=== PATIENT | female | born 1950 | race Caucasian/White ===

== ENCOUNTER 2018-09-27 16:29 | Emergency (ER) | payer MEDICARE ==
[~2018-09-27] VITALS: Ht 154.9 cm; Wt 44.0 kg
[~2018-09-27 16:29] MED LIST: AMIT-189 PO; ATOR40TA PO; CALC0.5C2 PO; CELE-193 PO; EZET10TA13 PO; FURO-150 PO; HYDR-3972 PO; LOSA25TA96 PO; MEXI200C PO; MONT10TA24 PO; PHYT100T PO; TRAV5DRO EACHEYE; [UNRECOGNIZED DRUG - OTHER]
[2018-09-27 17:13] LABS: BASOPHILS # (AUTO) 0.1 X10'3 (0-0.2); BASOPHILS % (AUTO) 0.7 % (0-1); EOSINOPHILS % (AUTO) 7.2 % (0-6); HEMATOCRIT 36.8 % (35.0-45.0); HEMOGLOBIN 12.2 g/dl (12.0-16.0); LYMPHOCYTES # (AUTO) 2.1 X10'3 (1.1-4.8); LYMPHOCYTES % (AUTO) 15.9 % (21-51); MEAN CORPUSCULAR HEMOGLOBIN 33.2 PG (27.0-31.0); MEAN CORPUSCULAR HGB CONC 33.2 g/dL (33.0-36.5); MEAN CORPUSCULAR VOLUME 99.9 FL (78-98); MEAN PLATELET VOLUME 7.6 FL (7.4-10.4); MONOCYTES # (AUTO) 1.2 X10'3 (0-0.9); MONOCYTES % (AUTO) 9.2 % (2-12); NEUTROPHILS # (AUTO) 8.9 X10'3 (1.8-7.7); PLATELET COUNT 384 X10'3 (140-440); RED BLOOD COUNT 3.68 X10'6 (4.20-5.60); RED CELL DISTRIBUTION WIDTH 14.5 % (11.5-14.5); WHITE BLOOD COUNT 13.3 X10'3 (4.5-11.0)
[2018-09-27 17:26] LABS: PARTIAL THROMBOPLASTIN TIME 26 SECONDS (22-32)
[2018-09-27 17:28] LABS: ALANINE AMINOTRANSFERASE 26 U/L (12-78); ALBUMIN 3.2 G/DL (3.4-5.0); ALBUMIN/GLOBULIN RATIO 0.7 (1.1-1.5); ALKALINE PHOSPHATASE 234 IU/L (46-116); ANION GAP 7 (8-16); ASPARTATE AMINO TRANSFERASE 25 U/L (10-37); BILIRUBIN,TOTAL 0.5 MG/DL (0.1-1.0); BLOOD UREA NITROGEN 10 MG/DL (7-18); BUN/CREATININE RATIO 8.3 (6.6-38.0); CHLORIDE 96 MMOL/L (99-107); CREATININE 1.21 MG/DL (0.40-0.90); GLUCOSE 162 MG/DL (70-104); POTASSIUM 3.1 MMOL/L (3.5-5.1); SODIUM 133 MMOL/L (135-145); TOTAL CARBON DIOXIDE 30.2 MMOL/L (24-32); TOTAL PROTEIN 7.9 G/DL (6.4-8.2); eGFR 44 ML/MIN
[2018-09-27] MEDS ORDERED: potassium Cl 20 mEq SR tablet PO STA (18:28)
[2018-09-27] MEDS ORDERED: CefTRIAXone/D5W-Rocephin 1gm 50 ML IV ONE (18:30)
[2018-09-27] MEDS ORDERED: normal saline 1000ML IV soln IVB ONE (18:30)
[2018-09-27 19:35] VITALS: BP 158/31
== END 2018-09-27 19:38 | disposition left against medical advice (07) ==
LOC: ER 16:30
DX: E83.52 Hypercalcemia (principal); R00.0 Tachycardia, unspecified; I48.91 Unspecified atrial fibrillation; D68.0 Von Willebrand disease; J45.909 Unspecified asthma, uncomplicated; Z90.710 Acquired absence of both cervix and uterus; Z98.890 Other specified postprocedural states; Z98.84 Bariatric surgery status; Z88.5 Allergy status to narcotic agent; Z88.8 Allergy status to other drugs, medicaments and biological substances; Z79.899 Other long term (current) drug therapy
CPT/HCPCS: 36415; 71045; 80053; 84484; 85025; 85610; 85730; 93005; 96365; 99284; J0696; J7030

== ENCOUNTER 2024-05-23 18:02 | Inpatient (IN) | payer MEDICARE ==
[~2024-05-23] VITALS: Ht 144.8 cm; Wt 56.7 kg
[~2024-05-23 18:02] MED LIST changes: -AMIT-189 PO; +AMIT50TA15 PO; -EZET10TA13 PO; +EZET10TA7 PO; +LOSA-415 PO; -LOSA25TA96 PO; +MONT-40 PO; -MONT10TA24 PO
[2024-05-23 19:31] LABS: BASOPHILS # (AUTO) 0.1 X10'3 (0-0.2); BASOPHILS % (AUTO) 0.8 % (0-1); EOSINOPHILS # (AUTO) 0.1 X10'3 (0-0.9); EOSINOPHILS % (AUTO) 1.5 % (0-6); LYMPHOCYTES # (AUTO) 1.2 X10'3 (1.1-4.8); LYMPHOCYTES % (AUTO) 15.3 % (21-51); MEAN CORPUSCULAR HEMOGLOBIN 26.1 PG (27.0-31.0); MEAN CORPUSCULAR HGB CONC 32.5 g/dL (33.0-36.5); MEAN CORPUSCULAR VOLUME 80.1 FL (78-98); MEAN PLATELET VOLUME 6.7 FL (7.4-10.4); MONOCYTES # (AUTO) 1.1 X10'3 (0-0.9); MONOCYTES % (AUTO) 13.8 % (2-12); NEUTROPHILS # (AUTO) 5.4 X10'3 (1.8-7.7); NEUTROPHILS % (AUTO) 68.6 % (42-75); PLATELET COUNT 372 X10'3 (140-440); RED BLOOD COUNT 2.63 X10'6 (4.20-5.60); RED CELL DISTRIBUTION WIDTH 19.2 % (11.5-14.5); WHITE BLOOD COUNT 7.9 X10'3 (4.5-11.0)
[2024-05-23] MEDS ORDERED: levetiracetam inj 1,000 MG in normal saline 100ml IV soln 100 ML IV SCH (19:40)
[2024-05-23 19:45] LABS: ALANINE AMINOTRANSFERASE 22 U/L (12-78); ALBUMIN 2.7 G/DL (3.4-5.0); ALBUMIN/GLOBULIN RATIO 0.6 (1.1-1.5); ALKALINE PHOSPHATASE 115 IU/L (46-116); ANION GAP 14 (8-16); ASPARTATE AMINO TRANSFERASE 35 U/L (10-37); BILIRUBIN,TOTAL 0.4 MG/DL (0.1-1.0); BLOOD UREA NITROGEN 79 MG/DL (7-18); BUN/CREATININE RATIO 12.2 (10.0-20.0); CALCIUM 6.6 MG/DL (8.5-10.1); CHLORIDE 96 MMOL/L (99-107); CREATININE 6.49 MG/DL (0.40-0.90); GLUCOSE 101 MG/DL (70-104); HEMATOCRIT 21.1 % (35.0-45.0); HEMOGLOBIN 6.9 g/dl (12.0-16.0); POTASSIUM 5.3 MMOL/L (3.5-5.1); SODIUM 130 MMOL/L (135-145); TOTAL CARBON DIOXIDE 20.3 MMOL/L (24-32); TOTAL PROTEIN 7.4 G/DL (6.4-8.2); eCRCL 4 ML/MIN; eGFR 6 ML/MIN
[2024-05-23 19:54] LABS: PRO BRAIN NATRIURETIC PEPTIDE 5308 PG/ML (0-450)
[2024-05-23] MEDS: levetiracetam-NACL1000mg/100ml 100 ML IV ONE (20:03)
[2024-05-23] MEDS ORDERED: pantoprazole 40mg IV 80 MG in normal saline 100ml IV soln 100 ML IV ONE (20:10)
[2024-05-23 20:23] LABS: APTT 28 SECONDS (22-32); INR 1.1 INR
[2024-05-23 20:27] LABS: ETHANOL < 10 MG/DL (<10); LIPASE 26 U/L (16-77); MAGNESIUM 2.2 MG/DL (1.5-2.4)
[2024-05-23 21:07] LABS: CKMB RELATIVE INDEX 2.6 RATIO (0-2.5); CREATINE KINASE 551 U/L (26-192); CREATINE KINASE MB 14.6 ng/ml (0.3-3.6); PHOSPHORUS 8.2 MG/DL (2.3-4.5)
[2024-05-23] MEDS ORDERED: potassium Cl 20 mEq SR tablet PO PRN ×2 (23:20)
[2024-05-23] MEDS ORDERED: magnesium Cl slow-release 64mg tablet PO PRN (23:20)
[2024-05-23] MEDS ORDERED: ondansetron/PF 4mg/2ml inj IV PRN (23:20)
[2024-05-23] MEDS ORDERED: potassium Cl 40MEQ/1/2NS 520ml 520 ML IV PRN (23:20)
[2024-05-23] MEDS ORDERED: magnesium sulf-water 4G/100mL 100 ML IV PRN (23:20)
[2024-05-23] MEDS ORDERED: dextrose 50%-water 50ml dispensing syringe IV PRN (23:20)
[2024-05-23] MEDS ORDERED: haloperidol lactate 5mg/ml inj IM PRN (23:20)
[2024-05-23] MEDS ORDERED: haloperidol 5mg tablet PO PRN (23:20)
[2024-05-23] MEDS ORDERED: magnesium sulf-water 2g/50mL 50 ML IV PRN (23:20)
[2024-05-23] MEDS ORDERED: acetaminophen 325mg tablet PO PRN (23:20)
[2024-05-23 23:39] LABS: URINE AMPHETAMINE SCREEN NEGATIVE (Neg); URINE BARBITUATE SCREEN NEGATIVE (Neg); URINE BENZODIAZEPINES SCREEN NEGATIVE (Neg); URINE CANNABINOID SCREEN POSITIVE (Neg); URINE COCAINE SCREEN NEGATIVE (Neg); URINE METHADONE SCREEN NEGATIVE (Neg); URINE OPIATE SCREEN POSITIVE (Neg); URINE PHENCYCLIDINE SCREEN NEGATIVE (Neg)
[2024-05-23] MEDS: pantoprazole 40 MG vial IV ONE (23:39)
[2024-05-23 23:40] LABS: BILIRUBIN,URINE NEGATIVE (Neg); CLARITY,URINE CLEAR (Clear); COLOR,URINE YELLOW (Yellow); GLUCOSE, URINE NEGATIVE (Neg); KETONES,URINE NEGATIVE (Neg); LEUKOCYTE ESTERASE ,URINE TRACE (Neg); NITRITES, URINE NEGATIVE (Neg); OCCULT BLOOD,URINE MODERATE (Neg); PROTEIN,URINE 30 mg/dl (Neg); UROBILINOGEN,URINE 0.2 E.U/dL (0.2-1.0)
[2024-05-23] MEDS: LORazepam 2 mg/ml vial IV PRN (23:40)
[2024-05-23 23:41] LABS: UA COLLECTION TYPE FOLEY CATH
[2024-05-23 23:46] LABS: BACTERIA,URINE FEW /HPF (Neg); SQUAMOUS EPITHELIAL CELL,UR FEW /LPF (FEW); WBC,URINE 0-4 /HPF (0-4)
[2024-05-23] MEDS: normal saline 1000ml 1,000 ML IV ONE (23:51)
[2024-05-24] VITALS (12 sets, daily range): BP systolic 111–135; BP diastolic 48–100; PULSE 87–95; RESP 14–20; TEMP 97.7–98.8; O2SAT 92–98
[2024-05-24 00:04] LABS: OSMOLALITY 305.5 MOSM/K (280-300)
[2024-05-24 00:10] LABS: ALBUMIN 2.9 G/DL (3.4-5.0); ANION GAP 16 (8-16); BLOOD UREA NITROGEN 77 MG/DL (7-18); BUN/CREATININE RATIO 11.1 (10.0-20.0); CALCIUM 6.5 MG/DL (8.5-10.1); CHLORIDE 94 MMOL/L (99-107); CREATININE 6.96 MG/DL (0.40-0.90); GLUCOSE 91 MG/DL (70-104); POTASSIUM 4.9 MMOL/L (3.5-5.1); SODIUM 129 MMOL/L (135-145); TOTAL CARBON DIOXIDE 19.3 MMOL/L (24-32); eCRCL 4 ML/MIN; eGFR 6 ML/MIN
[2024-05-24] MEDS: normal saline 1000ml 1,000 ML IV SCH (02:12)
[2024-05-24 07:16] LABS: PROTHROMBIN TIME 10.9 SECONDS (9.0-12.0)
[2024-05-24 07:23] LABS: BASOPHILS # (AUTO) 0.1 X10'3 (0-0.2); BASOPHILS % (AUTO) 0.5 % (0-1); EOSINOPHILS # (AUTO) 0.1 X10'3 (0-0.9); EOSINOPHILS % (AUTO) 0.7 % (0-6); HEMATOCRIT 30.1 % (35.0-45.0); HEMOGLOBIN 9.5 g/dl (12.0-16.0); LYMPHOCYTES # (AUTO) 0.7 X10'3 (1.1-4.8); LYMPHOCYTES % (AUTO) 5.5 % (21-51); MEAN CORPUSCULAR HEMOGLOBIN 26.7 PG (27.0-31.0); MEAN CORPUSCULAR HGB CONC 31.7 g/dL (33.0-36.5); MEAN CORPUSCULAR VOLUME 84.4 FL (78-98); MEAN PLATELET VOLUME 7.1 FL (7.4-10.4); MONOCYTES # (AUTO) 1.3 X10'3 (0-0.9); NEUTROPHILS # (AUTO) 10.1 X10'3 (1.8-7.7); NEUTROPHILS % (AUTO) 82.3 % (42-75); PLATELET COUNT 381 X10'3 (140-440); RED BLOOD COUNT 3.56 X10'6 (4.20-5.60); RED CELL DISTRIBUTION WIDTH 19.1 % (11.5-14.5); WHITE BLOOD COUNT 12.2 X10'3 (4.5-11.0)
[2024-05-24] MEDS: Levetiracetam-NACL 500mg/100ml 100 ML IV SCH (07:29)
[2024-05-24] MEDS: pantoprazole 40 MG vial IV SCH (07:30)
[2024-05-24] MEDS: thiamine 100mg/ml 2ml inj. IV SCH (07:31)
[2024-05-24 07:53] LABS: ALANINE AMINOTRANSFERASE 23 U/L (12-78); ALBUMIN 2.8 G/DL (3.4-5.0); ALBUMIN/GLOBULIN RATIO 0.5 (1.1-1.5); ALKALINE PHOSPHATASE 124 IU/L (46-116); ANION GAP 17 (8-16); ASPARTATE AMINO TRANSFERASE 55 U/L (10-37); BILIRUBIN,TOTAL 0.6 MG/DL (0.1-1.0); BLOOD UREA NITROGEN 75 MG/DL (7-18); BUN/CREATININE RATIO 11.2 (10.0-20.0); CALCIUM 6.2 MG/DL (8.5-10.1); CHLORIDE 97 MMOL/L (99-107); CREATININE 6.71 MG/DL (0.40-0.90); GLUCOSE 94 MG/DL (70-104); MAGNESIUM 2.6 MG/DL (1.5-2.4); PHOSPHORUS 8.4 MG/DL (2.3-4.5); POTASSIUM 5.2 MMOL/L (3.5-5.1); SODIUM 131 MMOL/L (135-145); TOTAL CARBON DIOXIDE 16.9 MMOL/L (24-32); TOTAL PROTEIN 8.1 G/DL (6.4-8.2); eCRCL 4 ML/MIN; eGFR 6 ML/MIN
[2024-05-24] MEDS: heparin, porcine 5000 units/ml vial SQ SCH (08:00)
[2024-05-24] MEDS: K and/or MAG REPLACEMENT MC SCH (08:00)
[2024-05-24] MEDS: docusate sod 100mg capsule PO SCH (08:00)
[2024-05-24] MEDS: CefTRIAXone/D5W-Rocephin 1gm 50 ML IV ONE (09:49)
[2024-05-24 10:17] LABS: ALBUMIN 2.7 G/DL (3.4-5.0); ANION GAP 17 (8-16); BLOOD UREA NITROGEN 79 MG/DL (7-18); BUN/CREATININE RATIO 12.1 (10.0-20.0); CALCIUM 6.1 MG/DL (8.5-10.1); CHLORIDE 100 MMOL/L (99-107); CREATININE 6.53 MG/DL (0.40-0.90); GLUCOSE 79 MG/DL (70-104); POTASSIUM 5.4 MMOL/L (3.5-5.1); SODIUM 134 MMOL/L (135-145); TOTAL CARBON DIOXIDE 17.4 MMOL/L (24-32); eCRCL 4 ML/MIN; eGFR 6 ML/MIN
[2024-05-24 11:45] LABS: HEMATOCRIT 30.9 % (35.0-45.0); HEMOGLOBIN 9.7 g/dl (12.0-16.0); MEAN CORPUSCULAR HEMOGLOBIN 26.6 PG (27.0-31.0); MEAN CORPUSCULAR HGB CONC 31.3 g/dL (33.0-36.5); MEAN PLATELET VOLUME 7.3 FL (7.4-10.4); PLATELET COUNT 363 X10'3 (140-440); RED BLOOD COUNT 3.64 X10'6 (4.20-5.60); RED CELL DISTRIBUTION WIDTH 18.7 % (11.5-14.5); WHITE BLOOD COUNT 12.7 X10'3 (4.5-11.0)
[2024-05-24] MEDS: folic acid 1mg/0.2ml inj IV SCH (11:45)
[2024-05-24 15:19] LABS: HEMATOCRIT 30.8 % (35.0-45.0); HEMOGLOBIN 9.8 g/dl (12.0-16.0); MEAN CORPUSCULAR HEMOGLOBIN 26.8 PG (27.0-31.0); MEAN CORPUSCULAR HGB CONC 31.8 g/dL (33.0-36.5); MEAN CORPUSCULAR VOLUME 84.3 FL (78-98); MEAN PLATELET VOLUME 7.1 FL (7.4-10.4); PLATELET COUNT 354 X10'3 (140-440); RED BLOOD COUNT 3.65 X10'6 (4.20-5.60); RED CELL DISTRIBUTION WIDTH 18.8 % (11.5-14.5); WHITE BLOOD COUNT 13.7 X10'3 (4.5-11.0)
[2024-05-24 15:28] LABS: TOTAL PROTEIN,URINE RANDOM 442.1 MG/DL
[2024-05-24 15:31] LABS: ALBUMIN 2.7 G/DL (3.4-5.0); ANION GAP 17 (8-16); BLOOD UREA NITROGEN 80 MG/DL (7-18); BUN/CREATININE RATIO 11.9 (10.0-20.0); CALCIUM 6.1 MG/DL (8.5-10.1); CHLORIDE 99 MMOL/L (99-107); CREATININE 6.73 MG/DL (0.40-0.90); GLUCOSE 70 MG/DL (70-104); POTASSIUM 5.5 MMOL/L (3.5-5.1); SODIUM 134 MMOL/L (135-145); TOTAL CARBON DIOXIDE 17.7 MMOL/L (24-32); eCRCL 4 ML/MIN; eGFR 6 ML/MIN
[2024-05-24 21:46] LABS: ALBUMIN 2.5 G/DL (3.4-5.0); ANION GAP 19 (8-16); BLOOD UREA NITROGEN 81 MG/DL (7-18); BUN/CREATININE RATIO 11.8 (10.0-20.0); CHLORIDE 101 MMOL/L (99-107); CREATININE 6.86 MG/DL (0.40-0.90); GLUCOSE 64 MG/DL (70-104); POTASSIUM 5.5 MMOL/L (3.5-5.1); SODIUM 134 MMOL/L (135-145); eCRCL 4 ML/MIN; eGFR 6 ML/MIN
[2024-05-24 22:12] LABS: TOTAL CARBON DIOXIDE 14.5 MMOL/L (24-32)
[2024-05-24 22:13] LABS: CALCIUM 5.6 MG/DL (8.5-10.1)
[2024-05-24] MEDS: CALCIUM GLUC 1gm/50ml NACL,iso 50 ML IV ONE (22:39)
[2024-05-24 23:09] LABS: MAGNESIUM 2.2 MG/DL (1.5-2.4); PHOSPHORUS 8.9 MG/DL (2.3-4.5)
[2024-05-25] VITALS (17 sets, daily range): BP systolic 107–160; BP diastolic 48–77; PULSE 91–103; RESP 15–26; TEMP 96.8–98.8; O2SAT 90–98
[2024-05-25] MEDS ORDERED: DEXTROSE 15 GM of carb/4 tabs (each vial/BOTTLE has 4 tablets) PO PRN ×2
[2024-05-25] MEDS ORDERED: glucagon, human recombinant 1mg kit SUBCUT PRN
[2024-05-25] MEDS ORDERED: dextrose 50%-water 50ml dispensing syringe IV PRN
[2024-05-25] MEDS: dextrose 50%-water 50ml dispensing syringe IV PRN (00:28)
[2024-05-25 06:54] LABS: BASOPHILS # (AUTO) 0.1 X10'3 (0-0.2); BASOPHILS % (AUTO) 0.7 % (0-1); EOSINOPHILS # (AUTO) 0.1 X10'3 (0-0.9); EOSINOPHILS % (AUTO) 0.8 % (0-6); HEMATOCRIT 31.1 % (35.0-45.0); HEMOGLOBIN 9.6 g/dl (12.0-16.0); LYMPHOCYTES # (AUTO) 0.7 X10'3 (1.1-4.8); LYMPHOCYTES % (AUTO) 5.4 % (21-51); MEAN CORPUSCULAR HEMOGLOBIN 26.3 PG (27.0-31.0); MEAN CORPUSCULAR VOLUME 84.8 FL (78-98); MEAN PLATELET VOLUME 7.3 FL (7.4-10.4); MONOCYTES # (AUTO) 1.3 X10'3 (0-0.9); MONOCYTES % (AUTO) 9.7 % (2-12); NEUTROPHILS # (AUTO) 11.2 X10'3 (1.8-7.7); NEUTROPHILS % (AUTO) 83.4 % (42-75); PLATELET COUNT 354 X10'3 (140-440); RED BLOOD COUNT 3.66 X10'6 (4.20-5.60); RED CELL DISTRIBUTION WIDTH 19.1 % (11.5-14.5); WHITE BLOOD COUNT 13.4 X10'3 (4.5-11.0)
[2024-05-25 07:01] LABS: INR 1.1 INR; PROTHROMBIN TIME 11.3 SECONDS (9.0-12.0)
[2024-05-25 07:17] LABS: ALANINE AMINOTRANSFERASE 23 U/L (12-78); ALBUMIN 2.5 G/DL (3.4-5.0); ALBUMIN/GLOBULIN RATIO 0.5 (1.1-1.5); ALKALINE PHOSPHATASE 134 IU/L (46-116); ANION GAP 20 (8-16); ASPARTATE AMINO TRANSFERASE 60 U/L (10-37); BILIRUBIN,TOTAL 0.4 MG/DL (0.1-1.0); BLOOD UREA NITROGEN 85 MG/DL (7-18); CALCIUM 6.1 MG/DL (8.5-10.1); CHLORIDE 103 MMOL/L (99-107); CREATININE 7.11 MG/DL (0.40-0.90); GLUCOSE 81 MG/DL (70-104); MAGNESIUM 2.3 MG/DL (1.5-2.4); PHOSPHORUS 8.4 MG/DL (2.3-4.5); POTASSIUM 5.3 MMOL/L (3.5-5.1); SODIUM 136 MMOL/L (135-145); TOTAL PROTEIN 7.6 G/DL (6.4-8.2); eCRCL 4 ML/MIN; eGFR 6 ML/MIN
[2024-05-25 07:30] LABS: TOTAL CARBON DIOXIDE 12.8 MMOL/L (24-32)
[2024-05-25] MEDS ORDERED: dextrose 50%-water 50ml dispensing syringe IV ONE (08:00)
[2024-05-25] MEDS: sodium bicarbonate 1meq/ml inj 150 ML in dextrose 5%-water 1,000 ML IV SCH (10:20)
[2024-05-25] MEDS: CefTRIAXone/D5W-Rocephin 1gm 50 ML IV SCH (10:20)
[2024-05-25 15:22] LABS: ABG BASE EXCESS -15.3 mmol/L (-2.0-3.0); ABG HCO3 12.2 mmol/L (21.0-28.0); ABG OXYGEN SATURATION 93.2 % (94.0-98.0); ABG PCO2 (T) 34.9 mmHg (32.0-45.0); ABG PH (T) 7.163 (7.350-7.450); ALLEN'S TEST POSITIVE; FCOHb 0.5 % (0.5-1.5); FHHb 6.8 % (0.0-5.0); FLOW 6 L/min; FO2Hb 92.7 % (94.0-98.0); MODE MASK - SIMPLE; TOTAL HEMOGLOBIN 10.9 G/dl (12.0-16.0)
[2024-05-25] MEDS ORDERED: HYDR2TAB7 PO (15:37)
[2024-05-25] MEDS ORDERED: FLUO20CA39 PO (15:37)
[2024-05-25] MEDS ORDERED: OMEP40CA21 PO (15:37)
[2024-05-25] MEDS ORDERED: PREG25CA19 PO (15:37)
[2024-05-25] MEDS ORDERED: CHOL20002 PO (15:37)
[2024-05-25] MEDS ORDERED: MORP-92 PO (15:37)
[2024-05-25] MEDS ORDERED: MAGN200T5 PO (15:37)
[2024-05-25] MEDS ORDERED: normal saline 1000ml 100 ML IV PRN (18:50)
[2024-05-25] MEDS: LIDOcaine 1% 30ml preserv. free vial IJ STA (19:29)
[2024-05-25] MEDS: EPOETIN ALFA-EPBX 20,000 UNIT/ML 1 ML MDV IV ONE (21:21)
[2024-05-25 21:57] LABS: ALBUMIN 2.1 G/DL (3.4-5.0); ANION GAP 13 (8-16); BLOOD UREA NITROGEN 76 MG/DL (7-18); CALCIUM 6.1 MG/DL (8.5-10.1); CHLORIDE 102 MMOL/L (99-107); CREATININE 6.32 MG/DL (0.40-0.90); GLUCOSE 165 MG/DL (70-104); POTASSIUM 4.3 MMOL/L (3.5-5.1); SODIUM 137 MMOL/L (135-145); TOTAL CARBON DIOXIDE 21.6 MMOL/L (24-32); eCRCL 5 ML/MIN; eGFR 6 ML/MIN
[2024-05-25] MEDS: heparin 1,000 units/ml 10ml inj HE ONE ×2 (23:00→23:01)
[2024-05-25] MEDS: mannitol 12.5gm/50mL VIAL IV ONE (23:01)
[2024-05-25] MEDS ORDERED: LORazepam 1 MG tablet PO PRN (23:20)
[2024-05-25] MEDS ORDERED: LORazepam 2 mg/ml vial IV PRN (23:20)
[2024-05-26] VITALS (20 sets, daily range): BP systolic 92–178; BP diastolic 50–84; PULSE 82–112; RESP 15–22; TEMP 97–99.5; O2SAT 88–99
[2024-05-26] MEDS: CEFEPIME 2gm in D5W 50mL 50 ML IV SCH (01:10)
[2024-05-26 01:47] LABS: ABG BASE EXCESS -2.4 mmol/L (-2.0-3.0); ABG HCO3 20.2 mmol/L (21.0-28.0); ABG PCO2 (T) 27.2 mmHg (32.0-45.0); ABG PH (T) 7.486 (7.350-7.450); ABG PO2 (T) 59.1 mmHg (83.0-108.0); ALLEN'S TEST POSITIVE; FCOHb 0.2 % (0.5-1.5); FLOW 7 L/min; FMetHb 0.3 % (0.0-1.5); FO2Hb 91.5 % (94.0-98.0); MODE MASK - SIMPLE; PATIENT TEMPERATURE 36.4
[2024-05-26] MEDS: vancomycin/NS 1 GM ADD-VANTAGE 250 ML X 1 DOSE IV ONE (01:49)
[2024-05-26] MEDS: metoprolol tartrate 1mg/ml inj IV ONE (02:00)
[2024-05-26 05:15] LABS: BASOPHILS % (AUTO) 0.1 % (0-1); EOSINOPHILS % (AUTO) 0.2 % (0-6); HEMATOCRIT 31.2 % (35.0-45.0); HEMOGLOBIN 10.2 g/dl (12.0-16.0); LYMPHOCYTES # (AUTO) 0.3 X10'3 (1.1-4.8); LYMPHOCYTES % (AUTO) 1.9 % (21-51); MEAN CORPUSCULAR HGB CONC 32.7 g/dL (33.0-36.5); MEAN CORPUSCULAR VOLUME 82.5 FL (78-98); MEAN PLATELET VOLUME 7.3 FL (7.4-10.4); MONOCYTES # (AUTO) 0.9 X10'3 (0-0.9); MONOCYTES % (AUTO) 6.3 % (2-12); NEUTROPHILS # (AUTO) 12.7 X10'3 (1.8-7.7); NEUTROPHILS % (AUTO) 91.5 % (42-75); PLATELET COUNT 280 X10'3 (140-440); RED BLOOD COUNT 3.78 X10'6 (4.20-5.60); RED CELL DISTRIBUTION WIDTH 19.4 % (11.5-14.5); WHITE BLOOD COUNT 13.9 X10'3 (4.5-11.0)
[2024-05-26 05:24] LABS: INR 1.1 INR; PROTHROMBIN TIME 11.4 SECONDS (9.0-12.0)
[2024-05-26 05:38] LABS: ALANINE AMINOTRANSFERASE 23 U/L (12-78); ALBUMIN 2.2 G/DL (3.4-5.0); ALBUMIN/GLOBULIN RATIO 0.4 (1.1-1.5); ALKALINE PHOSPHATASE 114 IU/L (46-116); ANION GAP 9 (8-16); ASPARTATE AMINO TRANSFERASE 47 U/L (10-37); BILIRUBIN,TOTAL 0.6 MG/DL (0.1-1.0); BLOOD UREA NITROGEN 35 MG/DL (7-18); BUN/CREATININE RATIO 9.7 (10.0-20.0); CHLORIDE 104 MMOL/L (99-107); CREATININE 3.62 MG/DL (0.40-0.90); GLUCOSE 124 MG/DL (70-104); MAGNESIUM 1.8 MG/DL (1.5-2.4); PHOSPHORUS 3.5 MG/DL (2.3-4.5); POTASSIUM 3.3 MMOL/L (3.5-5.1); SODIUM 138 MMOL/L (135-145); TOTAL CARBON DIOXIDE 24.8 MMOL/L (24-32); TOTAL PROTEIN 7.4 G/DL (6.4-8.2); eCRCL 8 ML/MIN; eGFR 12 ML/MIN
[2024-05-26] MEDS ORDERED: vancomycin/NS 1 GM ADD-VANTAGE 250 ML X 1 DOSE IV PRN (07:35)
[2024-05-26] MEDS ORDERED: rocuronium 10mg/ml inj IV ONE (08:00)
[2024-05-26] MEDS ORDERED: sodium phosphate inj. 15 MMOL in dextrose 5%-water 250 ML IV PRN (10:40)
[2024-05-26] MEDS ORDERED: sodium phosphate inj. 30 MMOL in dextrose 5%-water 250 ML IV PRN (10:40)
[2024-05-26] MEDS ORDERED: Neutra Phos packet PO PRN (10:40)
[2024-05-26] MEDS: VANCOMYCIN LEVEL IV ONE (12:00)
[2024-05-26] MEDS: LORazepam 2 mg/ml vial ONE (12:51)
[2024-05-26 12:59] LABS: ABG BASE EXCESS -5.4 mmol/L (-2.0-3.0); ABG HCO3 17.6 mmol/L (21.0-28.0); ABG OXYGEN SATURATION 97.8 % (94.0-98.0); ABG PH (T) 7.431 (7.350-7.450); ABG PO2 (T) 96.3 mmHg (83.0-108.0); ALLEN'S TEST POSITIVE; FCOHb 0.9 % (0.5-1.5); FHHb 2.2 % (0.0-5.0); FLOW 15 L/min; FMetHb 0.3 % (0.0-1.5); FO2Hb 96.6 % (94.0-98.0); MODE MASK - NRB; TOTAL HEMOGLOBIN 11.5 G/dl (12.0-16.0)
[2024-05-26] MEDS: LORazepam 2 mg/ml vial IV ONE (13:02)
[2024-05-26] MEDS ORDERED: UNABLE TO OBTAIN (16:41)
[2024-05-26 16:43] LABS: ABG BASE EXCESS -9.1 mmol/L (-2.0-3.0); ABG HCO3 16.3 mmol/L (21.0-28.0); ABG PCO2 (T) 32.5 mmHg (32.0-45.0); ABG PH (T) 7.314 (7.350-7.450); ABG PO2 (T) 137.5 mmHg (83.0-108.0); FCOHb 0.7 % (0.5-1.5); FO2Hb 98.3 % (94.0-98.0); MODE VENT - AC; PATIENT TEMPERATURE 36.3; PEEP 8 cm H2O; RESPIRATORY RATE 16 b/min; TIDAL VOLUME 400 mL; TOTAL HEMOGLOBIN 11.9 G/dl (12.0-16.0)
[2024-05-26] MEDS: FENTANYL-0.9 % NACL/PF 100 ML ONE (18:30)
[2024-05-26] MEDS: propofol 1000mg/100ml bottle 100 ML IV ONE (19:00)
[2024-05-26] MEDS: NORepinephrine 8mg/ 250ml NS 250 ML IV ONE (19:10)
[2024-05-26] MEDS: NORepinephrine 8mg/ 250ml NS 250 ML IV SCH (20:19)
[2024-05-27] VITALS (32 sets, daily range): BP systolic 88–136; BP diastolic 46–61; PULSE 83–96; RESP 10–23; O2SAT 94–100
[2024-05-27] MEDS: FENTANYL-0.9 % NACL/PF 100 ML IV SCH (01:40)
[2024-05-27] MEDS: propofol 1000mg/100ml bottle 100 ML IV SCH (02:11)
[2024-05-27] MEDS ORDERED: VANCOMYCIN LEVEL IV SCH (03:00)
[2024-05-27 03:20] LABS: BASOPHILS # (AUTO) 0.1 X10'3 (0-0.2); BASOPHILS % (AUTO) 0.4 % (0-1); EOSINOPHILS # (AUTO) 0.2 X10'3 (0-0.9); HEMATOCRIT 32.7 % (35.0-45.0); HEMOGLOBIN 10.4 g/dl (12.0-16.0); LYMPHOCYTES # (AUTO) 0.8 X10'3 (1.1-4.8); LYMPHOCYTES % (AUTO) 4.9 % (21-51); MEAN CORPUSCULAR HEMOGLOBIN 26.5 PG (27.0-31.0); MEAN CORPUSCULAR HGB CONC 31.7 g/dL (33.0-36.5); MEAN CORPUSCULAR VOLUME 83.4 FL (78-98); MEAN PLATELET VOLUME 7.6 FL (7.4-10.4); MONOCYTES # (AUTO) 1.3 X10'3 (0-0.9); MONOCYTES % (AUTO) 7.5 % (2-12); NEUTROPHILS % (AUTO) 86.2 % (42-75); PLATELET COUNT 273 X10'3 (140-440); RED BLOOD COUNT 3.92 X10'6 (4.20-5.60); RED CELL DISTRIBUTION WIDTH 19.5 % (11.5-14.5); WHITE BLOOD COUNT 17.4 X10'3 (4.5-11.0)
[2024-05-27 03:32] LABS: INR 1.1 INR; PROTHROMBIN TIME 11.7 SECONDS (9.0-12.0)
[2024-05-27 03:50] LABS: ALANINE AMINOTRANSFERASE 26 U/L (12-78); ALBUMIN 1.9 G/DL (3.4-5.0); ALBUMIN/GLOBULIN RATIO 0.4 (1.1-1.5); ALKALINE PHOSPHATASE 151 IU/L (46-116); ANION GAP 14 (8-16); ASPARTATE AMINO TRANSFERASE 45 U/L (10-37); BILIRUBIN,TOTAL 0.5 MG/DL (0.1-1.0); BLOOD UREA NITROGEN 41 MG/DL (7-18); CALCIUM 6.7 MG/DL (8.5-10.1); CHLORIDE 106 MMOL/L (99-107); CREATININE 3.43 MG/DL (0.40-0.90); GLUCOSE 136 MG/DL (70-104); MAGNESIUM 1.6 MG/DL (1.5-2.4); PHOSPHORUS 3.9 MG/DL (2.3-4.5); SODIUM 141 MMOL/L (135-145); TOTAL CARBON DIOXIDE 21.3 MMOL/L (24-32); eCRCL 9 ML/MIN; eGFR 13 ML/MIN
[2024-05-27 04:21] LABS: ABG BASE EXCESS -5.4 mmol/L (-2.0-3.0); ABG HCO3 17.8 mmol/L (21.0-28.0); ABG OXYGEN SATURATION 99.5 % (94.0-98.0); ABG PCO2 (T) 26.8 mmHg (32.0-45.0); ABG PH (T) 7.437 (7.350-7.450); ABG PO2 (T) 147.3 mmHg (83.0-108.0); FCOHb 0.5 % (0.5-1.5); FHHb 0.5 % (0.0-5.0); FMetHb 0.3 % (0.0-1.5); FO2Hb 98.7 % (94.0-98.0); MODE PRVC; PATIENT TEMPERATURE 36.3; PEEP 8 cm H2O; RESPIRATORY RATE 16 b/min; TIDAL VOLUME 400 mL; TOTAL HEMOGLOBIN 10.8 G/dl (12.0-16.0)
[2024-05-27] MEDS ORDERED: mannitol 12.5gm/50mL VIAL IV PRN (08:00)
[2024-05-27] MEDS ORDERED: normal saline 1000ml 250 ML IV PRN (08:00)
[2024-05-27] MEDS: cefepime 1GM in D5W 50mL 50 ML IV SCH (08:07)
[2024-05-27 12:50] LABS: CLARITY,URINE CLOUDY (Clear); COLOR,URINE RED (Yellow)
[2024-05-27 13:04] LABS: TOTAL PROTEIN,URINE RANDOM 38.2 MG/DL
[2024-05-27 13:05] LABS: UA COLLECTION TYPE FOLEY CATH
[2024-05-27 13:07] LABS: BACTERIA,URINE FEW /HPF (Neg); MUCUS STRANDS NONE SEEN /LPF (Neg); RBC,URINE TNTC /HPF (0-2); SQUAMOUS EPITHELIAL CELL,UR NONE SEEN /LPF (FEW); WBC CLUMPS,URINE FEW /HPF (NEGATIVE); YEAST FEW /HPF (NEGATIVE)
[2024-05-27] MEDS: potassium Cl 20mEq/100mL bag 100 ML IV PRN (13:16)
[2024-05-27] MEDS: furosemide 20 MG/2 ML vial IV SCH (16:14)
[2024-05-27] MEDS: magnesium sulf-water 4G/100mL 100 ML IV PRN (17:48)
[2024-05-27] MEDS: heparin 1,000unit/ml 10ml vial 10 ML IV ONE (19:00)
[2024-05-27] MEDS: heparin 1,000 units/ml 10ml inj HE ONE (19:00)
[2024-05-27] MEDS: heparin 1,000 units/ml 10ml inj IV ONE (19:00)
[2024-05-27] MEDS ORDERED: LORazepam 2 mg/ml vial IV PRN (23:20)
[2024-05-27] MEDS ORDERED: LORazepam 1 MG tablet PO PRN (23:20)
[2024-05-28] VITALS (37 sets, daily range): BP systolic 88–128; BP diastolic 46–71; PULSE 81–97; RESP 14–22; O2SAT 77–98
[2024-05-28 02:30] LABS: BASOPHILS # (AUTO) 0.1 X10'3 (0-0.2); BASOPHILS % (AUTO) 0.6 % (0-1); EOSINOPHILS # (AUTO) 0.4 X10'3 (0-0.9); EOSINOPHILS % (AUTO) 1.6 % (0-6); HEMATOCRIT 32.7 % (35.0-45.0); HEMOGLOBIN 10.5 g/dl (12.0-16.0); LYMPHOCYTES # (AUTO) 0.9 X10'3 (1.1-4.8); MEAN CORPUSCULAR HEMOGLOBIN 26.8 PG (27.0-31.0); MEAN CORPUSCULAR HGB CONC 32.2 g/dL (33.0-36.5); MEAN CORPUSCULAR VOLUME 83.3 FL (78-98); MEAN PLATELET VOLUME 7.9 FL (7.4-10.4); MONOCYTES # (AUTO) 1.9 X10'3 (0-0.9); MONOCYTES % (AUTO) 7.9 % (2-12); NEUTROPHILS # (AUTO) 20.7 X10'3 (1.8-7.7); NEUTROPHILS % (AUTO) 85.9 % (42-75); PLATELET COUNT 317 X10'3 (140-440); RED BLOOD COUNT 3.93 X10'6 (4.20-5.60); RED CELL DISTRIBUTION WIDTH 20.2 % (11.5-14.5)
[2024-05-28 02:38] LABS: INR 1.1 INR; PROTHROMBIN TIME 11.4 SECONDS (9.0-12.0)
[2024-05-28 02:46] LABS: ALANINE AMINOTRANSFERASE 16 U/L (12-78); ALBUMIN 1.7 G/DL (3.4-5.0); ALBUMIN/GLOBULIN RATIO 0.3 (1.1-1.5); ALKALINE PHOSPHATASE 136 IU/L (46-116); ANION GAP 16 (8-16); ASPARTATE AMINO TRANSFERASE 30 U/L (10-37); BILIRUBIN,TOTAL 0.5 MG/DL (0.1-1.0); BLOOD UREA NITROGEN 36 MG/DL (7-18); BUN/CREATININE RATIO 12.5 (10.0-20.0); CALCIUM 6.9 MG/DL (8.5-10.1); CHLORIDE 104 MMOL/L (99-107); CREATININE 2.89 MG/DL (0.40-0.90); GLUCOSE 119 MG/DL (70-104); MAGNESIUM 2.6 MG/DL (1.5-2.4); SODIUM 141 MMOL/L (135-145); TOTAL CARBON DIOXIDE 20.7 MMOL/L (24-32); TOTAL PROTEIN 7.2 G/DL (6.4-8.2); eCRCL 10 ML/MIN; eGFR 16 ML/MIN
[2024-05-28 02:49] LABS: POTASSIUM 2.7 MMOL/L (3.5-5.1)
[2024-05-28 03:10] LABS: ABG HCO3 20.2 mmol/L (21.0-28.0); ABG OXYGEN SATURATION 97.3 % (94.0-98.0); ABG PCO2 (T) 26.5 mmHg (32.0-45.0); ABG PH (T) 7.498 (7.350-7.450); ABG PO2 (T) 86.9 mmHg (83.0-108.0); FCOHb 0.7 % (0.5-1.5); FHHb 2.7 % (0.0-5.0); FMetHb 0.3 % (0.0-1.5); FO2Hb 96.3 % (94.0-98.0); MODE VENT - prvc; PATIENT TEMPERATURE 36.7; PEEP 8 cm H2O; RESPIRATORY RATE 16 b/min; TIDAL VOLUME 400 mL; TOTAL HEMOGLOBIN 11.3 G/dl (12.0-16.0)
[2024-05-28] MEDS: thiamine 100mg tablet PO SCH (09:24)
[2024-05-28] MEDS: folic acid 1mg tablet PO SCH (09:24)
[2024-05-28 20:09] LABS: ALBUMIN 1.8 G/DL (3.4-5.0); ANION GAP 14 (8-16); BLOOD UREA NITROGEN 38 MG/DL (7-18); BUN/CREATININE RATIO 17.6 (10.0-20.0); CALCIUM 6.8 MG/DL (8.5-10.1); CHLORIDE 105 MMOL/L (99-107); CREATININE 2.16 MG/DL (0.40-0.90); GLUCOSE 139 MG/DL (70-104); POTASSIUM 3.1 MMOL/L (3.5-5.1); SODIUM 145 MMOL/L (135-145); TOTAL CARBON DIOXIDE 26.4 MMOL/L (24-32); eCRCL 14 ML/MIN; eGFR 22 ML/MIN
[2024-05-29] VITALS (35 sets, daily range): BP systolic 85–151; BP diastolic 48–70; PULSE 81–97; RESP 11–18; O2SAT 95–99
[2024-05-29 02:44] LABS: BASOPHILS # (AUTO) 0.1 X10'3 (0-0.2); BASOPHILS % (AUTO) 0.6 % (0-1); EOSINOPHILS # (AUTO) 0.6 X10'3 (0-0.9); EOSINOPHILS % (AUTO) 2.6 % (0-6); HEMATOCRIT 31.9 % (35.0-45.0); HEMOGLOBIN 10.4 g/dl (12.0-16.0); LYMPHOCYTES # (AUTO) 1.2 X10'3 (1.1-4.8); LYMPHOCYTES % (AUTO) 5.4 % (21-51); MEAN CORPUSCULAR HEMOGLOBIN 26.9 PG (27.0-31.0); MEAN CORPUSCULAR HGB CONC 32.5 g/dL (33.0-36.5); MEAN CORPUSCULAR VOLUME 82.8 FL (78-98); MEAN PLATELET VOLUME 7.8 FL (7.4-10.4); MONOCYTES # (AUTO) 1.5 X10'3 (0-0.9); MONOCYTES % (AUTO) 6.9 % (2-12); NEUTROPHILS # (AUTO) 18.4 X10'3 (1.8-7.7); NEUTROPHILS % (AUTO) 84.5 % (42-75); PLATELET COUNT 327 X10'3 (140-440); RED BLOOD COUNT 3.86 X10'6 (4.20-5.60); WHITE BLOOD COUNT 21.8 X10'3 (4.5-11.0)
[2024-05-29 03:05] LABS: ALANINE AMINOTRANSFERASE 14 U/L (12-78); ALBUMIN 1.7 G/DL (3.4-5.0); ALBUMIN/GLOBULIN RATIO 0.3 (1.1-1.5); ALKALINE PHOSPHATASE 133 IU/L (46-116); ANION GAP 9 (8-16); ASPARTATE AMINO TRANSFERASE 27 U/L (10-37); BILIRUBIN,TOTAL 0.7 MG/DL (0.1-1.0); BLOOD UREA NITROGEN 37 MG/DL (7-18); BUN/CREATININE RATIO 17.3 (10.0-20.0); CALCIUM 6.8 MG/DL (8.5-10.1); CHLORIDE 105 MMOL/L (99-107); CREATININE 2.14 MG/DL (0.40-0.90); GLUCOSE 162 MG/DL (70-104); MAGNESIUM 1.8 MG/DL (1.5-2.4); POTASSIUM 3.4 MMOL/L (3.5-5.1); SODIUM 140 MMOL/L (135-145); TOTAL CARBON DIOXIDE 25.9 MMOL/L (24-32); TOTAL PROTEIN 7.6 G/DL (6.4-8.2); eCRCL 14 ML/MIN; eGFR 22 ML/MIN
[2024-05-29 03:27] LABS: ABG BASE EXCESS 0.3 mmol/L (-2.0-3.0); ABG HCO3 22.7 mmol/L (21.0-28.0); ABG OXYGEN SATURATION 95.8 % (94.0-98.0); ABG PCO2 (T) 29.2 mmHg (32.0-45.0); ABG PH (T) 7.507 (7.350-7.450); ABG PO2 (T) 73.6 mmHg (83.0-108.0); FCOHb 0.5 % (0.5-1.5); FHHb 4.2 % (0.0-5.0); FMetHb 0.3 % (0.0-1.5); MODE VENT - PRVC; PATIENT TEMPERATURE 36.8; PEEP 5 cm H2O; RESPIRATORY RATE 14 b/min; TIDAL VOLUME 400 mL
[2024-05-29] MEDS: cholecalciferol (vitamin D3) 1,000 unit (25mcg) tablet PO SCH (08:06)
[2024-05-29] MEDS: calcium carbonate 500mg tablet PO SCH (08:06)
[2024-05-29] MEDS: MULTIVIT-MIN/FERROUS GLUCONATE 9 MG/15 ML LIQUID PO SCH (08:06)
[2024-05-29] MEDS ORDERED: acetaminophen 325mg/10.15ml oral unit dose solution OGT PRN (11:34)
[2024-05-29] MEDS: heparin, porcine 5000 units/ml vial SQ SCH (11:34)
[2024-05-29] MEDS: rifaximin 550mg tablet PO SCH (11:34)
[2024-05-29] MEDS: lactulose 20gm/30ml cup PO SCH (11:36)
[2024-05-29] MEDS ORDERED: DEXTROSE 15 GM of carb/4 tabs (each vial/BOTTLE has 4 tablets) OGT PRN ×2 (11:39→11:43)
[2024-05-29] MEDS ORDERED: haloperidol 5mg tablet OGT PRN (11:46)
[2024-05-29] MEDS ORDERED: Neutra Phos packet OGT PRN (11:50)
[2024-05-29] MEDS ORDERED: rifaximin 550mg tablet PEG SCH (11:51)
[2024-05-29] MEDS ORDERED: cholecalciferol (vitamin D3) 1,000 unit (25mcg) tablet PO SCH (12:00)
[2024-05-29] MEDS: calcium carbonate 500mg tablet OGT SCH (12:50)
[2024-05-29 16:06] LABS: UREA NITROGEN 24HR,URINE 8.2 GM/24HR (7-20)
[2024-05-29] MEDS: docusate sodium 100mg/10ml UD cup OGT SCH (20:00)
[2024-05-29] MEDS: cefepime 1GM in D5W 50mL 50 ML IV SCH (20:13)
[2024-05-29] MEDS: lactulose 20gm/30ml cup OGT SCH (20:13)
[2024-05-29] MEDS: rifaximin 550mg tablet OGT SCH (20:14)
[2024-05-29] MEDS: cyanocobalamin 500mcg tablet OGT SCH (20:16)
[2024-05-29] MEDS ORDERED: calcium carbonate 500mg tablet PO SCH (21:00)
[2024-05-30] VITALS (37 sets, daily range): BP systolic 74–169; BP diastolic 50–84; PULSE 88–113; RESP 12–27; O2SAT 91–99
[2024-05-30 02:38] LABS: BASOPHILS # (AUTO) 0.1 X10'3 (0-0.2); BASOPHILS % (AUTO) 0.8 % (0-1); EOSINOPHILS # (AUTO) 0.8 X10'3 (0-0.9); EOSINOPHILS % (AUTO) 4.1 % (0-6); HEMATOCRIT 33.7 % (35.0-45.0); HEMOGLOBIN 10.6 g/dl (12.0-16.0); LYMPHOCYTES # (AUTO) 1.4 X10'3 (1.1-4.8); LYMPHOCYTES % (AUTO) 7.3 % (21-51); MEAN CORPUSCULAR HEMOGLOBIN 26.1 PG (27.0-31.0); MEAN CORPUSCULAR HGB CONC 31.4 g/dL (33.0-36.5); MEAN CORPUSCULAR VOLUME 83.3 FL (78-98); MEAN PLATELET VOLUME 8.1 FL (7.4-10.4); MONOCYTES # (AUTO) 1.4 X10'3 (0-0.9); MONOCYTES % (AUTO) 7.6 % (2-12); NEUTROPHILS # (AUTO) 14.9 X10'3 (1.8-7.7); NEUTROPHILS % (AUTO) 80.2 % (42-75); PLATELET COUNT 414 X10'3 (140-440); RED BLOOD COUNT 4.04 X10'6 (4.20-5.60); RED CELL DISTRIBUTION WIDTH 20.1 % (11.5-14.5); WHITE BLOOD COUNT 18.5 X10'3 (4.5-11.0)
[2024-05-30 02:54] LABS: ALANINE AMINOTRANSFERASE 14 U/L (12-78); ALBUMIN 1.8 G/DL (3.4-5.0); ALBUMIN/GLOBULIN RATIO 0.3 (1.1-1.5); ALKALINE PHOSPHATASE 133 IU/L (46-116); ANION GAP 10 (8-16); ASPARTATE AMINO TRANSFERASE 25 U/L (10-37); BILIRUBIN,TOTAL 0.3 MG/DL (0.1-1.0); BLOOD UREA NITROGEN 43 MG/DL (7-18); BUN/CREATININE RATIO 27.7 (10.0-20.0); CALCIUM 6.9 MG/DL (8.5-10.1); CHLORIDE 105 MMOL/L (99-107); CREATININE 1.55 MG/DL (0.40-0.90); GLUCOSE 158 MG/DL (70-104); MAGNESIUM 1.1 MG/DL (1.5-2.4); POTASSIUM 3.6 MMOL/L (3.5-5.1); SODIUM 143 MMOL/L (135-145); TOTAL CARBON DIOXIDE 27.8 MMOL/L (24-32); TOTAL PROTEIN 7.8 G/DL (6.4-8.2); eCRCL 19 ML/MIN; eGFR 33 ML/MIN
[2024-05-30 03:24] LABS: ABG BASE EXCESS 1.4 mmol/L (-2.0-3.0); ABG HCO3 24.5 mmol/L (21.0-28.0); ABG OXYGEN SATURATION 96.2 % (94.0-98.0); ABG PCO2 (T) 32.4 mmHg (32.0-45.0); ABG PH (T) 7.494 (7.350-7.450); ABG PO2 (T) 76.3 mmHg (83.0-108.0); FCOHb 0.9 % (0.5-1.5); FHHb 3.8 % (0.0-5.0); FMetHb 0.3 % (0.0-1.5); MODE VENT - PRVC; PATIENT TEMPERATURE 36.3; PEEP 5 cm H2O; RESPIRATORY RATE 12 b/min; TIDAL VOLUME 400 mL; TOTAL HEMOGLOBIN 11.6 G/dl (12.0-16.0)
[2024-05-30 05:12] LABS: HBSAG SCREEN Negative (Negative); HEP B SURF AB Non Reactive (.)
[2024-05-30] MEDS: furosemide 20 MG/2 ML vial IV SCH (08:00)
[2024-05-30] MEDS: MULTIVIT-MIN/FERROUS GLUCONATE 9 MG/15 ML LIQUID OGT SCH (08:46)
[2024-05-30] MEDS: folic acid 1mg tablet OGT SCH (08:46)
[2024-05-30] MEDS: cholecalciferol (vitamin D3) 1,000 unit (25mcg) tablet OGT SCH (08:46)
[2024-05-30] MEDS: thiamine 100mg tablet OGT SCH (08:47)
[2024-05-30] MEDS: magnesium sulf-water 2g/50mL 50 ML IV PRN (12:09)
[2024-05-30] MEDS: mineral oil/petrolatum ophthal oint EACHEYE SCH (20:02)
[2024-05-31] VITALS (23 sets, daily range): BP systolic 96–162; BP diastolic 48–86; PULSE 82–100; RESP 12–25; TEMP 97.4–97.8; O2SAT 92–99
[2024-05-31 02:22] LABS: HEMOGLOBIN 9.9 g/dl (12.0-16.0); LYMPHOCYTES # (AUTO) 2.1 X10'3 (1.1-4.8); RED CELL DISTRIBUTION WIDTH 20.3 % (11.5-14.5)
[2024-05-31 02:23] LABS: BASOPHILS # (AUTO) 0.1 X10'3 (0-0.2); BASOPHILS % (AUTO) 0.8 % (0-1); EOSINOPHILS # (AUTO) 0.7 X10'3 (0-0.9); EOSINOPHILS % (AUTO) 4.6 % (0-6); HEMATOCRIT 30.7 % (35.0-45.0); LYMPHOCYTES % (AUTO) 13.2 % (21-51); MEAN CORPUSCULAR HEMOGLOBIN 26.6 PG (27.0-31.0); MEAN CORPUSCULAR HGB CONC 32.3 g/dL (33.0-36.5); MEAN CORPUSCULAR VOLUME 82.3 FL (78-98); MONOCYTES # (AUTO) 1.8 X10'3 (0-0.9); MONOCYTES % (AUTO) 11.1 % (2-12); NEUTROPHILS # (AUTO) 11.1 X10'3 (1.8-7.7); NEUTROPHILS % (AUTO) 70.3 % (42-75); PLATELET COUNT 415 X10'3 (140-440); RED BLOOD COUNT 3.73 X10'6 (4.20-5.60); WHITE BLOOD COUNT 15.9 X10'3 (4.5-11.0)
[2024-05-31 02:38] LABS: ALANINE AMINOTRANSFERASE 16 U/L (12-78); ALBUMIN 1.9 G/DL (3.4-5.0); ALBUMIN/GLOBULIN RATIO 0.3 (1.1-1.5); ALKALINE PHOSPHATASE 120 IU/L (46-116); ANION GAP 8 (8-16); ASPARTATE AMINO TRANSFERASE 21 U/L (10-37); BILIRUBIN,TOTAL 0.3 MG/DL (0.1-1.0); BLOOD UREA NITROGEN 48 MG/DL (7-18); BUN/CREATININE RATIO 39.3 (10.0-20.0); CALCIUM 6.6 MG/DL (8.5-10.1); CHLORIDE 105 MMOL/L (99-107); CREATININE 1.22 MG/DL (0.40-0.90); GLUCOSE 148 MG/DL (70-104); MAGNESIUM 2.3 MG/DL (1.5-2.4); PHOSPHORUS 3.4 MG/DL (2.3-4.5); POTASSIUM 3.4 MMOL/L (3.5-5.1); SODIUM 146 MMOL/L (135-145); TOTAL CARBON DIOXIDE 32.8 MMOL/L (24-32); TOTAL PROTEIN 7.4 G/DL (6.4-8.2); eCRCL 24 ML/MIN; eGFR 43 ML/MIN
[2024-05-31 03:34] LABS: ABG BASE EXCESS 3.9 mmol/L (-2.0-3.0); ABG HCO3 27.8 mmol/L (21.0-28.0); ABG PCO2 (T) 39.5 mmHg (32.0-45.0); ABG PH (T) 7.466 (7.350-7.450); FCOHb 0.1 % (0.5-1.5); FMetHb 0.3 % (0.0-1.5); FO2Hb 95.6 % (94.0-98.0); MODE VENT - AC; PATIENT TEMPERATURE 37.2; PEEP 5 cm H2O; RESPIRATORY RATE 12 b/min; TIDAL VOLUME 400 mL; TOTAL HEMOGLOBIN 10.7 G/dl (12.0-16.0)
[2024-05-31] MEDS: furosemide 40mg/4ml inj ONE (08:16)
[2024-05-31] MEDS: furosemide 40mg/4ml inj IV ONE (08:17)
[2024-05-31] MEDS ORDERED: DEXTROSE 15 GM of carb/4 tabs (each vial/BOTTLE has 4 tablets) PO PRN ×2 (12:01→12:08)
[2024-05-31] MEDS ORDERED: acetaminophen 325mg/10.15ml oral unit dose solution PO PRN (12:07)
[2024-05-31] MEDS ORDERED: Neutra Phos packet PO PRN (12:11)
[2024-05-31] MEDS: calcium carbonate 500mg tablet PO SCH (13:05)
[2024-05-31] MEDS: lactose-reduced food (Ensure Enlive) - 237ml bottle PO SCH (13:51)
[2024-05-31] MEDS ORDERED: MAGN400C PO (15:47)
[2024-05-31] MEDS ORDERED: FLUO10CA65 PO (15:47)
[2024-05-31] MEDS ORDERED: CEFEPIME 2gm in D5W 50mL 50 ML IV SCH (20:00)
[2024-05-31] MEDS: lactulose 20gm/30ml cup PO SCH (21:01)
[2024-05-31] MEDS: docusate sodium 100mg/10ml UD cup PO SCH (21:01)
[2024-05-31] MEDS: rifaximin 550mg tablet PO SCH (21:02)
[2024-05-31] MEDS: cefepime 1GM in D5W 50mL 50 ML IV SCH (21:03)
[2024-06-01] VITALS (9 sets, daily range): BP systolic 129–156; BP diastolic 64–93; PULSE 71–106; RESP 16–27; TEMP 96.7–97.8; O2SAT 90–96
[2024-06-01] MEDS: ipratropium/albuterol 3ml nebule NEB SCH (00:24)
[2024-06-01] MEDS: amLODIPine 5mg tablet PO ONE (00:33)
[2024-06-01 06:01] LABS: HBSAG SCREEN Negative (Negative); HEP B SURF AB Non Reactive (.)
[2024-06-01] MEDS: cholecalciferol (vitamin D3) 1,000 unit (25mcg) tablet PO SCH (08:06)
[2024-06-01] MEDS: MULTIVIT-MIN/FERROUS GLUCONATE 9 MG/15 ML LIQUID PO SCH (08:06)
[2024-06-01] MEDS: folic acid 1mg tablet PO SCH (08:06)
[2024-06-01] MEDS: thiamine 100mg tablet PO SCH (08:07)
[2024-06-01] MEDS: cyanocobalamin 500mcg tablet PO SCH (08:07)
[2024-06-01 08:24] LABS: BASOPHILS # (AUTO) 0.2 X10'3 (0-0.2); BASOPHILS % (AUTO) 1.1 % (0-1); EOSINOPHILS # (AUTO) 0.7 X10'3 (0-0.9); EOSINOPHILS % (AUTO) 4.4 % (0-6); HEMATOCRIT 35.1 % (35.0-45.0); HEMOGLOBIN 11.3 g/dl (12.0-16.0); MEAN CORPUSCULAR HEMOGLOBIN 26.8 PG (27.0-31.0); MEAN CORPUSCULAR HGB CONC 32.3 g/dL (33.0-36.5); MEAN CORPUSCULAR VOLUME 82.9 FL (78-98); MONOCYTES # (AUTO) 1.9 X10'3 (0-0.9); MONOCYTES % (AUTO) 11.2 % (2-12); NEUTROPHILS % (AUTO) 71.3 % (42-75); PLATELET COUNT 508 X10'3 (140-440); RED BLOOD COUNT 4.23 X10'6 (4.20-5.60); RED CELL DISTRIBUTION WIDTH 20.7 % (11.5-14.5); WHITE BLOOD COUNT 16.8 X10'3 (4.5-11.0)
[2024-06-01 08:40] LABS: ALANINE AMINOTRANSFERASE 17 U/L (12-78); ALBUMIN 2.3 G/DL (3.4-5.0); ALBUMIN/GLOBULIN RATIO 0.4 (1.1-1.5); ALKALINE PHOSPHATASE 119 IU/L (46-116); ANION GAP 10 (8-16); ASPARTATE AMINO TRANSFERASE 38 U/L (10-37); BILIRUBIN,TOTAL 0.4 MG/DL (0.1-1.0); BLOOD UREA NITROGEN 31 MG/DL (7-18); BUN/CREATININE RATIO 33.3 (10.0-20.0); CHLORIDE 98 MMOL/L (99-107); CREATININE 0.93 MG/DL (0.40-0.90); GLUCOSE 105 MG/DL (70-104); MAGNESIUM 1.3 MG/DL (1.5-2.4); PHOSPHORUS 3.9 MG/DL (2.3-4.5); POTASSIUM 3.2 MMOL/L (3.5-5.1); SODIUM 138 MMOL/L (135-145); TOTAL CARBON DIOXIDE 29.6 MMOL/L (24-32); TOTAL PROTEIN 8.8 G/DL (6.4-8.2); eCRCL 31 ML/MIN; eGFR 59 ML/MIN
[2024-06-01] MEDS ORDERED: albuterol 2.5 MG/3 ML nebule NEB PRN (09:10)
[2024-06-01 09:24] LABS: PLATELET ESTIMATE INCREASED
[2024-06-01 09:25] LABS: POIKILOCYTOSIS 1+
[2024-06-01 09:26] LABS: ANISOCYTOSIS 3+
[2024-06-01] MEDS: guaiFENesin ER 600mg tablet PO SCH (10:09)
[2024-06-01] MEDS: furosemide 20 MG/2 ML vial IV SCH (10:09)
[2024-06-01] MEDS: potassium Cl 40MEQ/270ML bag 270 ML IV PRN (16:29)
[2024-06-01] MEDS: pregabalin 25mg capsule PO SCH (20:00)
[2024-06-01] MEDS: amitriptyline 50mg tablet PO SCH (22:12)
[2024-06-01] MEDS: atorvastatin 20mg tablet PO SCH (22:13)
[2024-06-02] VITALS (15 sets, daily range): BP systolic 117–149; BP diastolic 49–70; PULSE 88–106; RESP 16–26; TEMP 97.3–97.9; O2SAT 91–99
[2024-06-02 07:40] LABS: BASOPHILS # (AUTO) 0.1 X10'3 (0-0.2); BASOPHILS % (AUTO) 0.5 % (0-1); EOSINOPHILS # (AUTO) 0.5 X10'3 (0-0.9); EOSINOPHILS % (AUTO) 1.8 % (0-6); HEMATOCRIT 33.9 % (35.0-45.0); LYMPHOCYTES # (AUTO) 1.8 X10'3 (1.1-4.8); LYMPHOCYTES % (AUTO) 6.9 % (21-51); MEAN CORPUSCULAR HEMOGLOBIN 26.4 PG (27.0-31.0); MEAN CORPUSCULAR HGB CONC 32.3 g/dL (33.0-36.5); MEAN CORPUSCULAR VOLUME 81.7 FL (78-98); MONOCYTES # (AUTO) 2.2 X10'3 (0-0.9); MONOCYTES % (AUTO) 8.4 % (2-12); NEUTROPHILS # (AUTO) 21.2 X10'3 (1.8-7.7); NEUTROPHILS % (AUTO) 82.4 % (42-75); PLATELET COUNT 557 X10'3 (140-440); RED BLOOD COUNT 4.15 X10'6 (4.20-5.60); RED CELL DISTRIBUTION WIDTH 20.5 % (11.5-14.5)
[2024-06-02 07:51] LABS: WHITE BLOOD COUNT 25.7 X10'3 (4.5-11.0)
[2024-06-02 07:54] LABS: ALANINE AMINOTRANSFERASE 23 U/L (12-78); ALBUMIN 2.2 G/DL (3.4-5.0); ALBUMIN/GLOBULIN RATIO 0.4 (1.1-1.5); ALKALINE PHOSPHATASE 114 IU/L (46-116); ANION GAP 13 (8-16); ASPARTATE AMINO TRANSFERASE 38 U/L (10-37); BILIRUBIN,TOTAL 0.5 MG/DL (0.1-1.0); BLOOD UREA NITROGEN 25 MG/DL (7-18); BUN/CREATININE RATIO 28.7 (10.0-20.0); CALCIUM 6.8 MG/DL (8.5-10.1); CHLORIDE 97 MMOL/L (99-107); CREATININE 0.87 MG/DL (0.40-0.90); GLUCOSE 110 MG/DL (70-104); MAGNESIUM 1.3 MG/DL (1.5-2.4); PHOSPHORUS 5.8 MG/DL (2.3-4.5); POTASSIUM 3.4 MMOL/L (3.5-5.1); SODIUM 138 MMOL/L (135-145); TOTAL CARBON DIOXIDE 28.2 MMOL/L (24-32); TOTAL PROTEIN 8.2 G/DL (6.4-8.2); eCRCL 34 ML/MIN; eGFR 63 ML/MIN
[2024-06-02] MEDS: FLUoxetine 10mg capsule PO SCH (08:05)
[2024-06-02] MEDS: losartan 25mg tablet PO SCH (08:06)
[2024-06-02 08:11] LABS: ANISOCYTOSIS 3+; PLATELET ESTIMATE INCREASED; TOTAL CELLS COUNTED 100; TOXIC GRANULATION 1+
[2024-06-02 09:22] LABS: HEMOGLOBIN 11.7 g/dl (12.0-16.0); MONOCYTES # (AUTO) 1.7 X10'3 (0-0.9); MONOCYTES % (AUTO) 6.7 % (2-12)
[2024-06-02 09:23] LABS: BASOPHILS # (AUTO) 0.2 X10'3 (0-0.2); BASOPHILS % (AUTO) 0.6 % (0-1); EOSINOPHILS # (AUTO) 0.4 X10'3 (0-0.9); EOSINOPHILS % (AUTO) 1.6 % (0-6); HEMATOCRIT 36.8 % (35.0-45.0); LYMPHOCYTES # (AUTO) 1.6 X10'3 (1.1-4.8); LYMPHOCYTES % (AUTO) 6.3 % (21-51); MEAN CORPUSCULAR HEMOGLOBIN 26.2 PG (27.0-31.0); MEAN CORPUSCULAR HGB CONC 31.6 g/dL (33.0-36.5); MEAN CORPUSCULAR VOLUME 82.7 FL (78-98); MEAN PLATELET VOLUME 7.7 FL (7.4-10.4); NEUTROPHILS # (AUTO) 21.6 X10'3 (1.8-7.7); NEUTROPHILS % (AUTO) 84.8 % (42-75); PLATELET COUNT 628 X10'3 (140-440); RED BLOOD COUNT 4.46 X10'6 (4.20-5.60); RED CELL DISTRIBUTION WIDTH 20.4 % (11.5-14.5)
[2024-06-02 09:26] LABS: WHITE BLOOD COUNT 25.5 X10'3 (4.5-11.0)
[2024-06-02] MEDS: guaiFENesin ER 600mg tablet PO SCH (12:17)
[2024-06-02] MEDS: potassium Cl 40MEQ/1/2NS 520ml 520 ML IV PRN (12:26)
[2024-06-02] MEDS ORDERED: iohexol 350MG/ML 100ml bottle IV ONE (22:13)
[2024-06-02] MEDS ORDERED: iohexol 350 MG/ML 50ML vial IV ONE (22:13)
[2024-06-02] MEDS: lactobacillus rhamnosus 10,000 MMU CELLS/CAPSULE PO SCH (23:57)
[2024-06-03] VITALS (15 sets, daily range): BP systolic 113–141; BP diastolic 58–68; PULSE 95–106; RESP 16–25; TEMP 97.2–98.6; O2SAT 91–98
[2024-06-03] MEDS: Melatonin 3mg tablet PO ONE (01:08)
[2024-06-03 06:37] LABS: MEAN CORPUSCULAR VOLUME 81.6 FL (78-98); MEAN PLATELET VOLUME 7.6 FL (7.4-10.4); MONOCYTES # (AUTO) 1.5 X10'3 (0-0.9); NEUTROPHILS % (AUTO) 78.4 % (42-75)
[2024-06-03 06:38] LABS: BASOPHILS # (AUTO) 0.1 X10'3 (0-0.2); BASOPHILS % (AUTO) 0.8 % (0-1); EOSINOPHILS # (AUTO) 0.6 X10'3 (0-0.9); EOSINOPHILS % (AUTO) 3.5 % (0-6); HEMATOCRIT 32.8 % (35.0-45.0); HEMOGLOBIN 10.6 g/dl (12.0-16.0); LYMPHOCYTES # (AUTO) 1.7 X10'3 (1.1-4.8); MEAN CORPUSCULAR HEMOGLOBIN 26.4 PG (27.0-31.0); MEAN CORPUSCULAR HGB CONC 32.3 g/dL (33.0-36.5); MONOCYTES % (AUTO) 8.3 % (2-12); NEUTROPHILS # (AUTO) 14.4 X10'3 (1.8-7.7); PLATELET COUNT 630 X10'3 (140-440); RED BLOOD COUNT 4.01 X10'6 (4.20-5.60); RED CELL DISTRIBUTION WIDTH 20.2 % (11.5-14.5); WHITE BLOOD COUNT 18.4 X10'3 (4.5-11.0)
[2024-06-03 06:49] LABS: IRON 44 UG/DL (49-151)
[2024-06-03 06:50] LABS: ALANINE AMINOTRANSFERASE 21 U/L (12-78); ALBUMIN 2.1 G/DL (3.4-5.0); ALBUMIN/GLOBULIN RATIO 0.4 (1.1-1.5); ALKALINE PHOSPHATASE 143 IU/L (46-116); ANION GAP 14 (8-16); ASPARTATE AMINO TRANSFERASE 39 U/L (10-37); BILIRUBIN,TOTAL 0.5 MG/DL (0.1-1.0); BLOOD UREA NITROGEN 19 MG/DL (7-18); CALCIUM 6.9 MG/DL (8.5-10.1); CHLORIDE 97 MMOL/L (99-107); CREATININE 0.95 MG/DL (0.40-0.90); GLUCOSE 107 MG/DL (70-104); POTASSIUM 3.8 MMOL/L (3.5-5.1); SODIUM 134 MMOL/L (135-145); TOTAL CARBON DIOXIDE 23.4 MMOL/L (24-32); TOTAL PROTEIN 7.8 G/DL (6.4-8.2); eCRCL 31 ML/MIN; eGFR 57 ML/MIN
[2024-06-03 07:04] LABS: FERRITIN 197 NG/ML (8-252)
[2024-06-03] MEDS: aspirin 81mg, enteric-coated 1 TAB TABLET.DR PO SCH (08:38)
[2024-06-03] MEDS: cefepime 1GM in D5W 50mL 50 ML IV SCH (08:49)
[2024-06-03] MEDS: pantoprazole 40 MG vial IV SCH (08:50)
[2024-06-03] MEDS ORDERED: metoprolol tartrate 1mg/ml inj IV PRN ×2 (13:50→16:40)
[2024-06-03] MEDS ORDERED: nitroGLYCERIN 0.4mg SUBLingual tab SL PRN ×2 (13:50→16:40)
[2024-06-03] MEDS ORDERED: aminophylline 500mg/20ml vial IV PRN ×2 (13:50→16:40)
[2024-06-03] MEDS ORDERED: regadenoson 0.4mg/5ml syringe IV PRN (16:40)
[2024-06-03] MEDS: ferrous sulfate 300mg/5ml UD oral liquid PO SCH (17:55)
[2024-06-04] VITALS (25 sets, daily range): BP systolic 95–141; BP diastolic 58–78; PULSE 97–116; RESP 14–23; TEMP 97.6–99.4; O2SAT 92–98
[2024-06-04] MEDS: Melatonin 3mg tablet PO ONE (01:53)
[2024-06-04 05:59] LABS: BASOPHILS # (AUTO) 0.2 X10'3 (0-0.2); EOSINOPHILS # (AUTO) 0.7 X10'3 (0-0.9); EOSINOPHILS % (AUTO) 4.5 % (0-6); MEAN CORPUSCULAR HEMOGLOBIN 26.5 PG (27.0-31.0); MEAN PLATELET VOLUME 7.3 FL (7.4-10.4); NEUTROPHILS # (AUTO) 11.4 X10'3 (1.8-7.7)
[2024-06-04 06:01] LABS: BASOPHILS % (AUTO) 1.1 % (0-1); HEMATOCRIT 32.2 % (35.0-45.0); HEMOGLOBIN 10.3 g/dl (12.0-16.0); LYMPHOCYTES % (AUTO) 12.8 % (21-51); MEAN CORPUSCULAR HGB CONC 32.1 g/dL (33.0-36.5); MEAN CORPUSCULAR VOLUME 82.4 FL (78-98); MONOCYTES # (AUTO) 1.5 X10'3 (0-0.9); MONOCYTES % (AUTO) 9.3 % (2-12); NEUTROPHILS % (AUTO) 72.3 % (42-75); PLATELET COUNT 678 X10'3 (140-440); RED BLOOD COUNT 3.91 X10'6 (4.20-5.60); RED CELL DISTRIBUTION WIDTH 20.6 % (11.5-14.5); WHITE BLOOD COUNT 15.8 X10'3 (4.5-11.0)
[2024-06-04 06:13] LABS: ALANINE AMINOTRANSFERASE 26 U/L (12-78); ALBUMIN 2.2 G/DL (3.4-5.0); ALBUMIN/GLOBULIN RATIO 0.4 (1.1-1.5); ALKALINE PHOSPHATASE 108 IU/L (46-116); ANION GAP 14 (8-16); ASPARTATE AMINO TRANSFERASE 36 U/L (10-37); BILIRUBIN,TOTAL 0.5 MG/DL (0.1-1.0); BLOOD UREA NITROGEN 20 MG/DL (7-18); BUN/CREATININE RATIO 23.3 (10.0-20.0); CALCIUM 6.9 MG/DL (8.5-10.1); CHLORIDE 98 MMOL/L (99-107); CREATININE 0.86 MG/DL (0.40-0.90); GLUCOSE 104 MG/DL (70-104); POTASSIUM 3.5 MMOL/L (3.5-5.1); SODIUM 136 MMOL/L (135-145); TOTAL CARBON DIOXIDE 24.2 MMOL/L (24-32); TOTAL PROTEIN 7.7 G/DL (6.4-8.2); eCRCL 34 ML/MIN; eGFR 64 ML/MIN
[2024-06-04 06:20] LABS: TOTAL CELLS COUNTED 100
[2024-06-04 06:21] LABS: ANISOCYTOSIS 3+; PLATELET ESTIMATE INCREASED
[2024-06-04] MEDS: regadenoson 0.4mg/5ml syringe IV PRN (10:04)
[2024-06-04] MEDS: haloperidol 5mg tablet PO PRN (20:33)
[2024-06-04] MEDS ORDERED: acetaminophen 325mg tablet PO PRN (23:45)
[2024-06-05] VITALS (18 sets, daily range): BP systolic 112–141; BP diastolic 61–83; PULSE 65–112; RESP 16–28; TEMP 97–97.8; O2SAT 94–98
[2024-06-05 00:08] LABS: CHOL/HDL RATIO 3.3 (0.00-4.99); CHOLESTEROL 139 MG/DL (0-200); HDL CHOLESTEROL 42 MG/DL (35-60); LDL CHOLESTEROL 79 MG/DL (50-100); TRIGLYCERIDES 98 MG/DL (20-135)
[2024-06-05 06:58] LABS: ALANINE AMINOTRANSFERASE 21 U/L (12-78); ALBUMIN 2.2 G/DL (3.4-5.0); ALBUMIN/GLOBULIN RATIO 0.3 (1.1-1.5); ALKALINE PHOSPHATASE 114 IU/L (46-116); ANION GAP 14 (8-16); ASPARTATE AMINO TRANSFERASE 40 U/L (10-37); BILIRUBIN,TOTAL 0.5 MG/DL (0.1-1.0); BLOOD UREA NITROGEN 22 MG/DL (7-18); BUN/CREATININE RATIO 21.6 (10.0-20.0); CALCIUM 7.8 MG/DL (8.5-10.1); CHLORIDE 98 MMOL/L (99-107); CREATININE 1.02 MG/DL (0.40-0.90); GLUCOSE 151 MG/DL (70-104); POTASSIUM 3.3 MMOL/L (3.5-5.1); PREALBUMIN 16.7 MG/DL (19-36); SODIUM 132 MMOL/L (135-145); TOTAL PROTEIN 8.7 G/DL (6.4-8.2); eCRCL 29 ML/MIN; eGFR 53 ML/MIN
[2024-06-05 08:09] LABS: EOSINOPHILS # (AUTO) 0.4 X10'3 (0-0.9); HEMOGLOBIN 11.4 g/dl (12.0-16.0); LYMPHOCYTES # (AUTO) 1.2 X10'3 (1.1-4.8); MONOCYTES # (AUTO) 1.8 X10'3 (0-0.9)
[2024-06-05 08:10] LABS: BASOPHILS # (AUTO) 0.2 X10'3 (0-0.2); BASOPHILS % (AUTO) 0.7 % (0-1); EOSINOPHILS % (AUTO) 1.5 % (0-6); HEMATOCRIT 36.9 % (35.0-45.0); LYMPHOCYTES % (AUTO) 4.6 % (21-51); MEAN CORPUSCULAR HEMOGLOBIN 25.8 PG (27.0-31.0); MEAN CORPUSCULAR HGB CONC 30.9 g/dL (33.0-36.5); MEAN CORPUSCULAR VOLUME 83.6 FL (78-98); MEAN PLATELET VOLUME 7.6 FL (7.4-10.4); NEUTROPHILS # (AUTO) 22.1 X10'3 (1.8-7.7); NEUTROPHILS % (AUTO) 86.2 % (42-75); PLATELET COUNT 814 X10'3 (140-440); RED BLOOD COUNT 4.42 X10'6 (4.20-5.60)
[2024-06-05 08:55] LABS: WHITE BLOOD COUNT 25.6 X10'3 (4.5-11.0)
[2024-06-05 10:21] LABS: ANISOCYTOSIS 3+; PLATELET ESTIMATE INCREASED; TOTAL CELLS COUNTED 100
[2024-06-05] MEDS: vancomycin/NS 1 GM ADD-VANTAGE 250 ML IV SCH (19:45)
[2024-06-05 19:53] LABS: BILIRUBIN,URINE NEGATIVE (Neg); CLARITY,URINE CLOUDY (Clear); COLOR,URINE YELLOW (Yellow); GLUCOSE, URINE NEGATIVE (Neg); KETONES,URINE TRACE mg/dl (Neg); LEUKOCYTE ESTERASE ,URINE SMALL (Neg); NITRITES, URINE NEGATIVE (Neg); OCCULT BLOOD,URINE SMALL (Neg); PH,URINE 5.5 (4.8-8.0); PROTEIN,URINE 100 mg/dl (Neg); UROBILINOGEN,URINE 0.2 E.U/dL (0.2-1.0)
[2024-06-05 20:00] LABS: UA COLLECTION TYPE NON-SPECIFIED
[2024-06-05 20:04] LABS: BACTERIA,URINE 2+ /HPF (Neg); RBC,URINE 0-2 /HPF (0-2); SQUAMOUS EPITHELIAL CELL,UR MODERATE /LPF (FEW); YEAST MODERATE /HPF (NEGATIVE)
[2024-06-06] VITALS (18 sets, daily range): BP systolic 102–137; BP diastolic 51–68; PULSE 74–104; RESP 14–21; TEMP 96.9–98.2; O2SAT 90–98
[2024-06-06] MEDS: Melatonin 3mg tablet PO ONE (01:19)
[2024-06-06 07:48] LABS: HEMOGLOBIN 10.2 g/dl (12.0-16.0); NEUTROPHILS # (AUTO) 15.8 X10'3 (1.8-7.7)
[2024-06-06 07:49] LABS: BASOPHILS # (AUTO) 0.2 X10'3 (0-0.2); BASOPHILS % (AUTO) 1.2 % (0-1); EOSINOPHILS # (AUTO) 0.8 X10'3 (0-0.9); HEMATOCRIT 32.1 % (35.0-45.0); LYMPHOCYTES # (AUTO) 1.3 X10'3 (1.1-4.8); MEAN CORPUSCULAR HEMOGLOBIN 26.5 PG (27.0-31.0); MEAN CORPUSCULAR HGB CONC 31.9 g/dL (33.0-36.5); MEAN PLATELET VOLUME 7.1 FL (7.4-10.4); MONOCYTES % (AUTO) 5.2 % (2-12); NEUTROPHILS % (AUTO) 82.6 % (42-75); PLATELET COUNT 805 X10'3 (140-440); RED BLOOD COUNT 3.87 X10'6 (4.20-5.60); RED CELL DISTRIBUTION WIDTH 20.5 % (11.5-14.5); WHITE BLOOD COUNT 19.1 X10'3 (4.5-11.0)
[2024-06-06 08:10] LABS: ALANINE AMINOTRANSFERASE 20 U/L (12-78); ALBUMIN 2.2 G/DL (3.4-5.0); ALBUMIN/GLOBULIN RATIO 0.4 (1.1-1.5); ALKALINE PHOSPHATASE 110 IU/L (46-116); ANION GAP 12 (8-16); ASPARTATE AMINO TRANSFERASE 36 U/L (10-37); BILIRUBIN,TOTAL 0.5 MG/DL (0.1-1.0); BLOOD UREA NITROGEN 19 MG/DL (7-18); BUN/CREATININE RATIO 20.2 (10.0-20.0); CALCIUM 7.7 MG/DL (8.5-10.1); CHLORIDE 102 MMOL/L (99-107); CREATININE 0.94 MG/DL (0.40-0.90); GLUCOSE 97 MG/DL (70-104); POTASSIUM 3.7 MMOL/L (3.5-5.1); SODIUM 134 MMOL/L (135-145); TOTAL CARBON DIOXIDE 20.5 MMOL/L (24-32); eCRCL 31 ML/MIN; eGFR 58 ML/MIN
[2024-06-06] MEDS: ferrous sulfate 300mg/5ml UD oral liquid PO SCH (15:30)
[2024-06-06] MEDS: VANCOMYCIN LEVEL IV ONE (19:30)
[2024-06-06] MEDS: vancomycin/NS 1 GM ADD-VANTAGE 250 ML IV SCH (21:47)
[2024-06-06] MEDS: CEFEPIME 2gm in D5W 50mL 50 ML IV SCH (21:47)
[2024-06-07] VITALS (15 sets, daily range): BP systolic 99–153; BP diastolic 63–94; PULSE 98–108; RESP 13–18; TEMP 97.5–97.6; O2SAT 94–98
[2024-06-07 08:42] LABS: EOSINOPHILS # (AUTO) 0.9 X10'3 (0-0.9); EOSINOPHILS % (AUTO) 5.8 % (0-6)
[2024-06-07 08:43] LABS: BASOPHILS # (AUTO) 0.2 X10'3 (0-0.2); BASOPHILS % (AUTO) 1.4 % (0-1); HEMATOCRIT 34.3 % (35.0-45.0); HEMOGLOBIN 10.6 g/dl (12.0-16.0); LYMPHOCYTES # (AUTO) 1.3 X10'3 (1.1-4.8); LYMPHOCYTES % (AUTO) 8.2 % (21-51); MEAN CORPUSCULAR HEMOGLOBIN 25.5 PG (27.0-31.0); MEAN CORPUSCULAR HGB CONC 30.8 g/dL (33.0-36.5); MEAN CORPUSCULAR VOLUME 82.8 FL (78-98); MEAN PLATELET VOLUME 7.1 FL (7.4-10.4); MONOCYTES % (AUTO) 6.3 % (2-12); NEUTROPHILS # (AUTO) 12.6 X10'3 (1.8-7.7); NEUTROPHILS % (AUTO) 78.3 % (42-75); PLATELET COUNT 830 X10'3 (140-440); RED BLOOD COUNT 4.14 X10'6 (4.20-5.60); RED CELL DISTRIBUTION WIDTH 20.5 % (11.5-14.5)
[2024-06-07 09:05] LABS: ALANINE AMINOTRANSFERASE 28 U/L (12-78); ALBUMIN 2.4 G/DL (3.4-5.0); ALBUMIN/GLOBULIN RATIO 0.4 (1.1-1.5); ALKALINE PHOSPHATASE 110 IU/L (46-116); ANION GAP 13 (8-16); ASPARTATE AMINO TRANSFERASE 33 U/L (10-37); BILIRUBIN,TOTAL 0.4 MG/DL (0.1-1.0); BLOOD UREA NITROGEN 19 MG/DL (7-18); BUN/CREATININE RATIO 26.8 (10.0-20.0); CALCIUM 8.1 MG/DL (8.5-10.1); CHLORIDE 104 MMOL/L (99-107); CREATININE 0.71 MG/DL (0.40-0.90); GLUCOSE 94 MG/DL (70-104); POTASSIUM 3.6 MMOL/L (3.5-5.1); SODIUM 138 MMOL/L (135-145); TOTAL CARBON DIOXIDE 21.5 MMOL/L (24-32); TOTAL PROTEIN 8.7 G/DL (6.4-8.2); eCRCL 41 ML/MIN; eGFR 80 ML/MIN
[2024-06-07 09:16] LABS: TOTAL CELLS COUNTED 100
[2024-06-07 09:17] LABS: ANISOCYTOSIS 3+; PLATELET ESTIMATE INCREASED
[2024-06-07 09:18] LABS: LARGE PLATELETS FEW
[2024-06-08] VITALS (19 sets, daily range): BP systolic 112–174; BP diastolic 58–85; PULSE 100–112; RESP 15–20; TEMP 97.1–97.6; O2SAT 95–100
[2024-06-08 07:15] LABS: ALANINE AMINOTRANSFERASE 30 U/L (12-78); ALBUMIN 2.5 G/DL (3.4-5.0); ALBUMIN/GLOBULIN RATIO 0.4 (1.1-1.5); ALKALINE PHOSPHATASE 107 IU/L (46-116); ANION GAP 15 (8-16); ASPARTATE AMINO TRANSFERASE 35 U/L (10-37); BILIRUBIN,TOTAL 0.5 MG/DL (0.1-1.0); BLOOD UREA NITROGEN 17 MG/DL (7-18); CALCIUM 8.3 MG/DL (8.5-10.1); CHLORIDE 103 MMOL/L (99-107); CREATININE 0.74 MG/DL (0.40-0.90); GLUCOSE 101 MG/DL (70-104); POTASSIUM 3.4 MMOL/L (3.5-5.1); PREALBUMIN 16.5 MG/DL (19-36); SODIUM 139 MMOL/L (135-145); TOTAL CARBON DIOXIDE 20.7 MMOL/L (24-32); TOTAL PROTEIN 8.4 G/DL (6.4-8.2); eCRCL 39 ML/MIN; eGFR 76 ML/MIN
[2024-06-08 07:57] LABS: BASOPHILS # (AUTO) 0.3 X10'3 (0-0.2); BASOPHILS % (AUTO) 2.1 % (0-1); EOSINOPHILS % (AUTO) 7.1 % (0-6); HEMATOCRIT 34.4 % (35.0-45.0); HEMOGLOBIN 10.8 g/dl (12.0-16.0); LYMPHOCYTES # (AUTO) 1.4 X10'3 (1.1-4.8); LYMPHOCYTES % (AUTO) 10.4 % (21-51); MEAN CORPUSCULAR HEMOGLOBIN 26.3 PG (27.0-31.0); MEAN CORPUSCULAR HGB CONC 31.5 g/dL (33.0-36.5); MEAN CORPUSCULAR VOLUME 83.4 FL (78-98); MEAN PLATELET VOLUME 7.5 FL (7.4-10.4); MONOCYTES # (AUTO) 1.1 X10'3 (0-0.9); MONOCYTES % (AUTO) 8.2 % (2-12); NEUTROPHILS # (AUTO) 9.8 X10'3 (1.8-7.7); NEUTROPHILS % (AUTO) 72.2 % (42-75); PLATELET COUNT 824 X10'3 (140-440); RED BLOOD COUNT 4.12 X10'6 (4.20-5.60); RED CELL DISTRIBUTION WIDTH 20.3 % (11.5-14.5); WHITE BLOOD COUNT 13.6 X10'3 (4.5-11.0)
[2024-06-08] MEDS: pantoprazole 40mg Tablet.DR PO SCH (08:58)
[2024-06-08 09:25] LABS: C-REACTIVE PROTEIN 4.17 MG/DL (0.0-0.5)
[2024-06-08 09:50] LABS: ANISOCYTOSIS 3+; PLATELET ESTIMATE INCREASED; TOTAL CELLS COUNTED 100
[2024-06-08 09:51] LABS: LARGE PLATELETS FEW
[2024-06-08] MEDS: VANCOMYCIN LEVEL IV ONE (19:51)
[2024-06-09] VITALS (20 sets, daily range): BP systolic 119–155; BP diastolic 63–87; PULSE 11–124; RESP 15–21; TEMP 97.2–97.6; O2SAT 94–100
[2024-06-09 06:12] LABS: INR 1.1 INR; PRE OP PARTIAL THROMB. TIME 29 SECONDS (22-32)
[2024-06-09 06:14] LABS: PROTHROMBIN TIME 11.9 SECONDS (9.0-12.0)
[2024-06-09 06:17] LABS: HEMATOCRIT 34.5 % (35.0-45.0); HEMOGLOBIN 11.4 g/dl (12.0-16.0); MEAN CORPUSCULAR HEMOGLOBIN 27.3 PG (27.0-31.0); MEAN CORPUSCULAR VOLUME 82.9 FL (78-98); MEAN PLATELET VOLUME 7.1 FL (7.4-10.4); PLATELET COUNT 873 X10'3 (140-440); RED BLOOD COUNT 4.16 X10'6 (4.20-5.60); RED CELL DISTRIBUTION WIDTH 20.4 % (11.5-14.5); WHITE BLOOD COUNT 10.8 X10'3 (4.5-11.0)
[2024-06-09 06:24] LABS: ALANINE AMINOTRANSFERASE 24 U/L (12-78); ALBUMIN 2.6 G/DL (3.4-5.0); ALBUMIN/GLOBULIN RATIO 0.4 (1.1-1.5); ALKALINE PHOSPHATASE 114 IU/L (46-116); ANION GAP 15 (8-16); ASPARTATE AMINO TRANSFERASE 32 U/L (10-37); BILIRUBIN,TOTAL 0.5 MG/DL (0.1-1.0); BLOOD UREA NITROGEN 17 MG/DL (7-18); BUN/CREATININE RATIO 21.5 (10.0-20.0); CALCIUM 9.2 MG/DL (8.5-10.1); CHLORIDE 101 MMOL/L (99-107); CREATININE 0.79 MG/DL (0.40-0.90); GLUCOSE 112 MG/DL (70-104); POTASSIUM 3.7 MMOL/L (3.5-5.1); SODIUM 134 MMOL/L (135-145); TOTAL CARBON DIOXIDE 17.8 MMOL/L (24-32); TOTAL PROTEIN 8.8 G/DL (6.4-8.2); eCRCL 37 ML/MIN; eGFR 71 ML/MIN
[2024-06-09 07:04] LABS: PLATELET ESTIMATE INCREASED; TOTAL CELLS COUNTED 100
[2024-06-09 07:05] LABS: ANISOCYTOSIS 3+; ROULEAUX 1+
[2024-06-09 07:06] LABS: BURR CELLS FEW; POLYCHROMASIA FEW
[2024-06-09] MEDS ORDERED: heparin 10,000 units/1 ML INJ ONE (10:37)
[2024-06-09 12:53] LABS: MAGNESIUM 1.3 MG/DL (1.5-2.4)
[2024-06-09] MEDS ORDERED: iohexol 300 MG/1 ML 50ml polymer ONE (13:31)
[2024-06-09] MEDS: magnesium sulf-water 2g/50mL 50 ML IV ONE (15:46)
[2024-06-09] MEDS ORDERED: magnesium sulf-water 2g/50mL 50 ML IV PRN (21:05)
[2024-06-09] MEDS ORDERED: potassium Cl 20 mEq SR tablet PO PRN ×2 (21:05)
[2024-06-09] MEDS ORDERED: potassium Cl 40MEQ/1/2NS 520ml 520 ML IV PRN (21:05)
[2024-06-09] MEDS ORDERED: magnesium sulf-water 4G/100mL 100 ML IV PRN (21:05)
[2024-06-09] MEDS: aspirin 81mg, enteric-coated 1 TAB TABLET.DR PO ONE (22:21)
[2024-06-09] MEDS: magnesium Cl slow-release 64mg tablet PO PRN (22:26)
[2024-06-10] VITALS (9 sets, daily range): BP systolic 124–133; BP diastolic 67–74; PULSE 99–107; RESP 15–20; TEMP 97–98; O2SAT 95–99
[2024-06-10 06:07] LABS: BASOPHILS # (AUTO) 0.4 X10'3 (0-0.2); MEAN CORPUSCULAR HEMOGLOBIN 26.8 PG (27.0-31.0)
[2024-06-10 06:11] LABS: BASOPHILS % (AUTO) 3.5 % (0-1); EOSINOPHILS # (AUTO) 0.7 X10'3 (0-0.9); EOSINOPHILS % (AUTO) 6.2 % (0-6); LYMPHOCYTES # (AUTO) 1.7 X10'3 (1.1-4.8); LYMPHOCYTES % (AUTO) 15.1 % (21-51); MEAN CORPUSCULAR HGB CONC 32.3 g/dL (33.0-36.5); MEAN CORPUSCULAR VOLUME 83.2 FL (78-98); MEAN PLATELET VOLUME 7.1 FL (7.4-10.4); MONOCYTES # (AUTO) 0.9 X10'3 (0-0.9); MONOCYTES % (AUTO) 8.4 % (2-12); NEUTROPHILS # (AUTO) 7.4 X10'3 (1.8-7.7); NEUTROPHILS % (AUTO) 66.8 % (42-75); PLATELET COUNT 907 X10'3 (140-440); RED BLOOD COUNT 4.09 X10'6 (4.20-5.60); RED CELL DISTRIBUTION WIDTH 20.7 % (11.5-14.5); WHITE BLOOD COUNT 11.1 X10'3 (4.5-11.0)
[2024-06-10 06:29] LABS: ALANINE AMINOTRANSFERASE 24 U/L (12-78); ALBUMIN 2.7 G/DL (3.4-5.0); ALBUMIN/GLOBULIN RATIO 0.4 (1.1-1.5); ALKALINE PHOSPHATASE 113 IU/L (46-116); ANION GAP 13 (8-16); ASPARTATE AMINO TRANSFERASE 34 U/L (10-37); BILIRUBIN,TOTAL 0.5 MG/DL (0.1-1.0); BLOOD UREA NITROGEN 23 MG/DL (7-18); BUN/CREATININE RATIO 26.1 (10.0-20.0); CALCIUM 9.2 MG/DL (8.5-10.1); CHLORIDE 99 MMOL/L (99-107); CREATININE 0.88 MG/DL (0.40-0.90); GLUCOSE 109 MG/DL (70-104); POTASSIUM 3.5 MMOL/L (3.5-5.1); SODIUM 132 MMOL/L (135-145); TOTAL CARBON DIOXIDE 20.1 MMOL/L (24-32); TOTAL PROTEIN 8.8 G/DL (6.4-8.2); eCRCL 33 ML/MIN; eGFR 62 ML/MIN
[2024-06-10 07:13] LABS: PLATELET ESTIMATE INCREASED; TOTAL CELLS COUNTED 100
[2024-06-10 07:14] LABS: ANISOCYTOSIS 3+
[2024-06-10 07:16] LABS: ROULEAUX 1+
[2024-06-10] MEDS: aspirin 81mg, enteric-coated 1 TAB TABLET.DR PO SCH (07:55)
[2024-06-10 08:52] LABS: C-REACTIVE PROTEIN 1.52 MG/DL (0.0-0.5)
[2024-06-10] MEDS ORDERED: FURO10VI51 PO (11:11)
[2024-06-10] MEDS ORDERED: ASPI-1071 PO (11:11)
[2024-06-10] MEDS ORDERED: HYDR2TAB7 PO (11:11)
[2024-06-10] MEDS ORDERED: FER300L PO (11:11)
[2024-06-10] MEDS ORDERED: MORP-92 PO (11:11)
[2024-06-10] MEDS ORDERED: LACT1CAP26 PO (11:11)
[2024-06-10] MEDS ORDERED: LINE600T14 PO (11:14)
[2024-06-14] MEDS ORDERED: OMEP20CA15 PO (11:31)
[2024-06-14] MEDS ORDERED: FLUO-330 PO (11:33)
[2024-06-14] MEDS ORDERED: HYDR2TAB28 PO (11:40)
[2024-06-14] MEDS ORDERED: MVI (11:40)
[2024-06-14] MEDS ORDERED: PROBIOTIC (11:40)
[2024-06-14] MEDS ORDERED: ASPI81TA52 PO (11:40)
[2024-06-14] MEDS ORDERED: FER300L PO (11:40)
[2024-06-14] MEDS ORDERED: LOSA-415 PO (11:44)
== END 2024-06-10 11:47 | disposition left against medical advice (07) | DRG 100 ==
LOC: ER 18:03 → ORTHO 4S 21:45 → PCU 3S 05-25 16:14 → CICU 2S 05-26 13:23 → PCU 3S 05-31 15:25
PROVIDERS: ADMIT Internal Medicine Pulmonary Disease; ATTEND Family Medicine
PROC: BW211ZZ Computerized Tomography (CT Scan) of Abdomen and Pelvis using Low Osmolar Contrast (ICD-10-PCS; 2024-05-23)
PROC: 30233N1 Transfusion of Nonautologous Red Blood Cells into Peripheral Vein, Percutaneous Approach (ICD-10-PCS; 2024-05-23)
PROC: 4A10X4Z Monitoring of Central Nervous Electrical Activity, External Approach (ICD-10-PCS; principal; 2024-05-25)
PROC: 5A1D70Z Performance of Urinary Filtration, Intermittent, Less than 6 Hours Per Day (ICD-10-PCS; 2024-05-25)
PROC: 02HV33Z Insertion of Infusion Device into Superior Vena Cava, Percutaneous Approach (ICD-10-PCS; 2024-05-26)
PROC: B548ZZA Ultrasonography of Superior Vena Cava, Guidance (ICD-10-PCS; 2024-05-26)
PROC: 0BH17EZ Insertion of Endotracheal Airway into Trachea, Via Natural or Artificial Opening (ICD-10-PCS; 2024-05-26)
PROC: 5A1955Z Respiratory Ventilation, Greater than 96 Consecutive Hours (ICD-10-PCS; 2024-05-26)
PROC: 4A10X4Z Monitoring of Central Nervous Electrical Activity, External Approach (ICD-10-PCS; 2024-05-29)
PROC: 4A10X4Z Monitoring of Central Nervous Electrical Activity, External Approach (ICD-10-PCS; 2024-05-30)
PROC: 5A09357 Assistance with Respiratory Ventilation, Less than 24 Consecutive Hours, Continuous Positive Airway Pressure (ICD-10-PCS; 2024-05-30)
PROC: 5A09357 Assistance with Respiratory Ventilation, Less than 24 Consecutive Hours, Continuous Positive Airway Pressure (ICD-10-PCS; 2024-05-31)
PROC: B4201ZZ Computerized Tomography (CT Scan) of Abdominal Aorta using Low Osmolar Contrast (ICD-10-PCS; 2024-06-02)
PROC: B4241ZZ Computerized Tomography (CT Scan) of Superior Mesenteric Artery using Low Osmolar Contrast (ICD-10-PCS; 2024-06-02)
PROC: B4281ZZ Computerized Tomography (CT Scan) of Bilateral Renal Arteries using Low Osmolar Contrast (ICD-10-PCS; 2024-06-02)
PROC: B42C1ZZ Computerized Tomography (CT Scan) of Pelvic Arteries using Low Osmolar Contrast (ICD-10-PCS; 2024-06-02)
PROC: B42H1ZZ Computerized Tomography (CT Scan) of Bilateral Lower Extremity Arteries using Low Osmolar Contrast (ICD-10-PCS; 2024-06-02)
PROC: B4211ZZ Computerized Tomography (CT Scan) of Celiac Artery using Low Osmolar Contrast (ICD-10-PCS; 2024-06-02)
PROC: B42H1ZZ Computerized Tomography (CT Scan) of Bilateral Lower Extremity Arteries using Low Osmolar Contrast (ICD-10-PCS; 2024-06-02)
PROC: 4A02XM4 Measurement of Cardiac Total Activity, External Approach (ICD-10-PCS; 2024-06-04)
PROC: 3E033HZ Introduction of Radioactive Substance into Peripheral Vein, Percutaneous Approach (ICD-10-PCS; 2024-06-04)
DX: G40.509 Epileptic seizures related to external causes, not intractable, without status epilepticus (principal); G92.8 Other toxic encephalopathy; J96.01 Acute respiratory failure with hypoxia; N17.0 Acute kidney failure with tubular necrosis; E87.20 Acidosis, unspecified; E87.1 Hypo-osmolality and hyponatremia; F10.139 Alcohol abuse with withdrawal, unspecified; L97.518 Non-pressure chronic ulcer of other part of right foot with other specified severity; E87.6 Hypokalemia; Z96.643 Presence of artificial hip joint, bilateral; Z66 Do not resuscitate; Z53.21 Procedure and treatment not carried out due to patient leaving prior to being seen by health care provider; E83.51 Hypocalcemia; D75.838 Other thrombocytosis; G89.4 Chronic pain syndrome; E78.5 Hyperlipidemia, unspecified; E87.5 Hyperkalemia; I73.9 Peripheral vascular disease, unspecified; I25.10 Atherosclerotic heart disease of native coronary artery without angina pectoris; I10 Essential (primary) hypertension; D64.9 Anemia, unspecified; J44.9 Chronic obstructive pulmonary disease, unspecified; Z82.49 Family history of ischemic heart disease and other diseases of the circulatory system; Z98.84 Bariatric surgery status; Z90.710 Acquired absence of both cervix and uterus; Z90.49 Acquired absence of other specified parts of digestive tract; Z87.891 Personal history of nicotine dependence; Z88.5 Allergy status to narcotic agent; Z79.899 Other long term (current) drug therapy
CPT/HCPCS: 36415; 36430; 36600; 70450; 71045; 73620; 74176; 75635; 78452; 80048; 80053; 80061; 80202; 80305; 80320; 81001; 82140; 82550; 82553; 82570; 82728; 82803; 82948; 83540; 83605; 83690; 83735; 83874; 83880; 83930; 83935; 84100; 84132; 84133; 84134; 84145; 84156; 84300; 84466; 84484; 84540; 84550; 84560; 85007; 85008; 85018; 85025; 85027; 85610; 85651; 85730; 86140; 86706; 86885; 86900; 86901; 86920; 87040; 87070; 87081; 87088; 87340; 92508; 92616; 93005; 93017; 93306; 93925; 93970; 94002; 94003; 94640; 94664; 94668; 94760; 94799; 95720; 95816; 97116; 97161; 97530; 97535; 99291; A4314; A4333; A4615; A4620; A4624; A4649; A6196; A6212; A6213; A6250; A6258; A6402; A6446; A6449; A9500; C1751; C1752; C1758; E1594; G0257; G0378; J0171; J0610; J0692; J0696; J1644; J1940; J1953; J2060; J2150; J2470; J2704; J2785; J3010; J3370; J3411; J3475; J3480; J3490; J7030; J7040; J7070; J7120; P9016; Q4081; Q9967

== ENCOUNTER 2024-09-12 12:35 | Outpatient (CLI) | payer MEDICARE ==
[~2024-09-12 12:35] MED LIST changes: -CALC0.5C2 PO; -CELE-193 PO; +CHOL20002 PO; +CLOP75TA34 PO; -EZET10TA7 PO; +FER300L PO; +FLUO40CA10 PO; -FURO-150 PO; -HYDR-3972 PO; +HYDR2TAB28 PO; -LOSA-415 PO; +MAGN400C PO; -MEXI200C PO; -MONT-40 PO; +MORP-92 PO; +MULT-1249 PO; +OMEP20CA15 PO; -PHYT100T PO; +PROBIOTIC PO; -TRAV5DRO EACHEYE; -[UNRECOGNIZED DRUG - OTHER]
--- NOTE | 2024-09-12 16:07 | VASCULAR REPORT ---
EXAM: VASC VL KEREN ANKLE/BRACHIAL INDEX CLINICAL HISTORY: Lower extremity pain Peripheral vascular disease COMPARISON: None TECHNIQUE: Bilateral systolic ankle and brachial pressures are obtained, with ankle pulse volume waveforms and i ndices. FINDINGS: Pressures: Right Left Brachial 148 mmHg 150 mmHg PT 52 mmHg na mmHg DP 64 mmHg na mmHg KEREN: Right Left 0.43 na Pulse volume waveforms: Monophasic IMPRESSION: Right KEREN, 0.43 indicating [id number] peripheral arterial disease. No pressures obtained in the left lower extremity due to open wounds from bypass graft surgery. 1.0-1.4: normal 0.91-0.99 borderline 0.9: abnormal (i.e. PAD) 0.4-0.9: [id number] PAD <0.4: suggestive of severe PAD
--- NOTE | 2024-09-12 17:14 | VASCULAR REPORT ---
Bilateral Lower Extremity Arterial Duplex Clinical History: Lower extremity pain and bypass graft Comparison: [facility] [place] VL ARTERIAL on DOS: 06/02/24 Technique: Duplex Doppler evaluation including color Doppler and spectral/pulsed waveform analysis of the lower extremity arteries was performed. Findings: RIGHT: Peak systolic velocities are as follows: RECORDS SPECIALIST 295 cm/s Deep femoral 127 cm/s SFA proximal 110 cm/s SFA mid-portion 330 cm/s SFA distal 113 cm/s Popliteal 124 cm/s Posterior tibial 44 cm/s Anterior tibial 34 cm/s Peroneal n/a cm/s Dorsalis pedis 34 cm/s The waveforms are monophasic with diastolic flow . LEFT: Peak systolic velocities are as follows: RECORDS SPECIALIST 236 cm/s Deep femoral 178 cm/s SFA proximal 0 cm/s SFA mid-portion 0 cm/s SFA distal 0 cm/s Popliteal 108 cm/s Posterior tibial 10 cm/s Anterior tibial 38 cm/s Peroneal n/a cm/s Dorsalis pedis 38 cm/s The waveforms are monophasic with diastolic flow . Left bypass graft proximal anastomosis, 106 cm/sec with monophasic waveform. Proximal mid and distal left bypass graft are occluded. IMPRESSION: Proximal mid and distal left bypass graft is occluded. 50-75% stenosis of the bilateral common femoral artery based on peak systolic velocity criteria. Greater than 75% stenosis of the right mid superficial femoral artery based on peak systolic velocity criteria. Bilateral monophasic arterial waveforms suggestive of underlying peripheral arterial disease. REFERENCE VALUES, [facility]) vascular Imaging Lab Criteria: Peak systolic velocity rang es (in cm/sec) are as follows: <150 cm/s - <20 % stenosis 150-200 cm/s - 20-49% stenosis 200-300 cm/s - 50-75% stenosis >300 cm/s -> 75% stenosis
== END 2024-09-12 23:59 | disposition home or self-care (01) ==
LOC: RAD 12:35
PROVIDERS: ATTEND Surgery
DX: I73.9 Peripheral vascular disease, unspecified (principal); I77.1 Stricture of artery
CPT/HCPCS: 93922; 93925

== ENCOUNTER 2024-09-13 07:43 | Emergency (ER) | payer MEDICARE ==
[~2024-09-13] VITALS: Ht 154.9 cm; Wt 47.7 kg
[2024-09-13 08:33] LABS: BASOPHILS # (AUTO) 0.2 X10'3 (0-0.2); BASOPHILS % (AUTO) 4.1 % (0-1); EOSINOPHILS # (AUTO) 0.4 X10'3 (0-0.9); EOSINOPHILS % (AUTO) 8.2 % (0-6); HEMATOCRIT 31.6 % (35.0-45.0); HEMOGLOBIN 10.2 g/dl (12.0-16.0); LYMPHOCYTES # (AUTO) 1.6 X10'3 (1.1-4.8); LYMPHOCYTES % (AUTO) 28.9 % (21-51); MEAN CORPUSCULAR HEMOGLOBIN 27.3 PG (27.0-31.0); MEAN CORPUSCULAR HGB CONC 32.2 g/dL (33.0-36.5); MEAN CORPUSCULAR VOLUME 84.7 FL (78-98); MEAN PLATELET VOLUME 6.4 FL (7.4-10.4); MONOCYTES # (AUTO) 0.6 X10'3 (0-0.9); MONOCYTES % (AUTO) 11.5 % (2-12); NEUTROPHILS # (AUTO) 2.6 X10'3 (1.8-7.7); NEUTROPHILS % (AUTO) 47.3 % (42-75); PLATELET COUNT 590 X10'3 (140-440); RED BLOOD COUNT 3.73 X10'6 (4.20-5.60); RED CELL DISTRIBUTION WIDTH 17.2 % (11.5-14.5); WHITE BLOOD COUNT 5.4 X10'3 (4.5-11.0)
[2024-09-13 08:40] LABS: ANION GAP 10 (8-16); BLOOD UREA NITROGEN 21 MG/DL (7-18); BUN/CREATININE RATIO 24.7 (10.0-20.0); CALCIUM 8.7 MG/DL (8.5-10.1); CHLORIDE 100 MMOL/L (99-107); CREATININE 0.85 MG/DL (0.40-0.90); GLUCOSE 95 MG/DL (70-104); POTASSIUM 3.3 MMOL/L (3.5-5.1); SODIUM 138 MMOL/L (135-145); eCRCL 42 ML/MIN; eGFR 65 ML/MIN
[2024-09-13 08:44] LABS: APTT 25 SECONDS (22-32); PROTHROMBIN TIME 10.3 SECONDS (9.0-12.0)
--- NOTE | 2024-09-13 09:52 | Physician Documentation ---
History of Present Illness ~ General Chief Complaint: Post-operative complication Stated Complaint: [facility] REFERRAL Time Seen by MD: 09:34 Primary Medical Doctor: DR Steele History of Present Illness Initial Comments Reviewed discharge summary July 10, 2024 PID status post femoral distal bypass graft June 16, 2024 Postoperative complication of expanding hematoma on July 04 status post left groin seroma evacuation with wound VAC placement. She is presenting today due to follow up appointment yesterday with ultrasound showing occluded femoral artery bypass graft. Patient denies any pain. Medication Reconciliation Allergies: Coded Allergies: codeine (Unverified Allergy, Unknown, 09/13/24) RESP DEPRESSION Scheduled Amitriptyline Hcl* (Elavil*), 1 TAB PO HS, (Reported) Atorvastatin Calcium* (Lipitor*), 1 TABLET PO HS, (Reported) Cholecalciferol (Vitamin D3) (Vitamin D3), 1 CAP PO DAILY, (Reported) Clopidogrel Bisulfate (Clopidogrel), 1 TAB PO DAILY, (Reported) Ferrous Sulfate (Ferrous Sulfate), 5 ML PO DAILY, (Reported) Fluoxetine HCl (Prozac), 1 CAP PO DAILY, (Reported) Magnesium Oxide (Magnesium), 400 MG PO DAILY, (Reported) Morphine Sulfate (Morphine Sulfate Er), 1 TAB PO HS, (Reported) Multivitamin (Multivitamin), 1 TAB PO DAILY, (Reported) Omeprazole (Omeprazole), 1 CAP PO QAM, (Reported) [Probiotic], 1 TAB PO BID, (Reported) Scheduled PRN Hydromorphone Hcl* (Dilaudid*), 1 TAB PO TID PRN PRN for pain, (Reported) Past Medical History Past Medical History: Seizures, Vascular Disease, Asthma, Anemia Past Surgical History: gastric bypass, hysterectomy, orthopedic surgeries, other Other Past Surgical History: parathyroid sx Patient History: FH: cardiovascular disease FATHER, FH: kidney failure MOTHER, Alcohol Use: Alcoholic Drug Use: none Lives In: Home Review of Systems All Other Systems at this time: Reviewed and Negative Constitutional: Denies: fever Physical Exam Physical Exam Vital Signs: Temperature: 97.8, Source: Temporal, Heart Rate: 94, Respiratory Rate: 12, BP: 154/80, Pulse Oximetry: 94, Weight: 47.730 Oxygen Flow Rate: 0 Physical Exam Left lower extremity warm well-perfused Left lateral incision with scant serosanguineous discharge Left Medial thigh incision well healed Soft compartments DP pulse intact Progress Progress Note 10:04 a.m. discussed case with who recommends CT angio and admission to the hospitalist service. Plan for eventual OR Consulted hospitalist Service who agree with management plan and graciously accept for admission Results/Orders Reviewed/noted all lab results: Yes Results/Orders Orders - MARY CARMEN LADD MD Cta Abdomen Lower Extr Runoff (09/13/24 ) Page Hospitalist (09/13/24 12:48) Completed Orders - MARY CARMEN LADD MD Cbc/Diff (09/13/24 07:50) BMP (09/13/24 07:50) PTT (09/13/24 07:50) Pt Inr (09/13/24 07:50) Cta Abdomen Lower Extr Runoff (09/13/24 ) Iohexol 350mg/Ml 100ml (Omnipaque 350mg/ (09/13/24 10:11) Iohexol 350mg/Ml 50ml Inj (Omnipaque 350 (09/13/24 10:12) Heparin 10,000 Unit/Ml 1ml (Heparin 10,0 (09/13/24 12:45) Heparin 1,000 Units/Ml Porcine (Heparin (09/13/24 12:45) Iohexol 300mg/Ml 50ml Inj. (Omnipaque-30 (09/13/24 13:35) Vital Signs 09/13/24 09/13/24 09/13/24 09/13/24 07:48 08:37 08:37 11:38 Temp 97.8 Pulse 102 94 117 Resp 18 12 12 13 B/P (MAP) 128/63 154/80 (104) 134/70 (91) Pulse Ox 98 94 97 O2 Flow Rate 0 09/13/24 09/13/24 09/13/24 09/13/24 12:48 13:15 13:15 13:15 Temp 97.7 97.1 97.1 Pulse 114 113 113 Resp 15 16 16 16 B/P (MAP) 144/74 (97) 127/73 (91) 127/73 (91) Pulse Ox 97 97 97 97 O2 Delivery Room Air Room Air O2 Flow Rate 0 09/13/24 09/13/24 13:15 18:14 Pulse 113 75 Resp 16 15 B/P (MAP) 126/72 (90) Pulse Ox 97 97 O2 Delivery Room Air Laboratory Tests Test 09/13/24 08:20 White Blood Count 5.4 Red Blood Count 3.73 L Hemoglobin 10.2 L Hematocrit 31.6 L Mean Corpuscular Volume 84.7 Mean Corpuscular Hemoglobin 27.3 Mean Corpuscular Hemoglobin Concent 32.2 L Red Cell Distribution Width 17.2 H Platelet Count 590 H Mean Platelet Volume 6.4 L Neutrophils (%) (Auto) 47.3 Lymphocytes (%) (Auto) 28.9 Monocytes (%) (Auto) 11.5 Eosinophils (%) (Auto) 8.2 H Basophils (%) (Auto) 4.1 H Neutrophils # (Auto) 2.6 Lymphocytes # (Auto) 1.6 Monocytes # (Auto) 0.6 Eosinophils # (Auto) 0.4 Basophils # (Auto) 0.2 CBC Comment Prothrombin Time 10.3 INR International Normalized Ratio 1.0 Activated Partial Thromboplast Time 25 Coagulation Comments Sodium Level 138 Potassium Level 3.3 L Chloride Level 100 Carbon Dioxide Level 28.0 Anion Gap 10 Blood Urea Nitrogen 21 H Creatinine 0.85 Estimated GFR/1.73 m2 65 BUN/Creatinine Ratio 24.7 H Glucose Level 95 Calcium Level 8.7 Albumin 3.0 L Chemistry Comments EKG/XRAY/CT/US/VASC/MRI CT : Impression CTA independently interpreted by myself shows occlusion of left femoral artery graft Medical Decision Making Additional info obtained from: old records Findings OR report 07/05/24 Departure Disposition: 09 ADMITTED INPATIENT Admitted to Inpatient Unit: to hospitalist Impression: Primary Impression: Occlusion of arterial bypass graft Qualified Codes: T82.898A - Other specified complication of vascular prosthetic devices, implants and grafts, initial encounter Referrals: NO PRIMARY CARE PROVIDER (PCP) Signature Scribe Signature: na Attestation: MARY CARMEN Grande MD September 13, 2024 09:52
[2024-09-13] MEDS ORDERED: iohexol 350MG/ML 100ml bottle IV ONE (10:11)
[2024-09-13] MEDS ORDERED: iohexol 350 MG/ML 50ML vial IV ONE (10:12)
[2024-09-13] MEDS ORDERED: heparin 10,000 units/1 ML INJ ONE (12:45)
--- NOTE | 2024-09-13 12:56 | ELECTROCARDIOGRAPH REPORT ---
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 Jordi Benitez Measurements Intervals [place] Rate: 122 P: 30 GA: 140 QRS: 12 QRSD: 98 T: 2 QT: 336 QTc: 479 Interpretive Statements Sinus tachycardia Borderline prolonged QT interval Baseline wander in lead(s) II,III,aVF Electronically Signed On 09-16-2024 13:43:[address] Jordi Benitez Please click the below link to view image of tracing.
[2024-09-13 13:15] VITALS: BP 127/73; PULSE 113; RESP 16; TEMP 97.1; O2SAT 97
[2024-09-13] MEDS ORDERED: iohexol 300 MG/1 ML 50ml polymer ONE (13:35)
[2024-09-13] MEDS ORDERED: magnesium hydroxide 30ml (MOM) UD suspension PO PRN (17:05)
[2024-09-13] MEDS ORDERED: acetaminophen 325mg tablet PO PRN ×2 (17:05)
[2024-09-13] MEDS ORDERED: morphine 2 MG/ML inj. syringe IV PRN ×2 (17:05)
[2024-09-13] MEDS ORDERED: diphenhydrAMINE 25mg capsule PO PRN (17:05)
[2024-09-13] MEDS ORDERED: magnesium sulf-water 4G/100mL 100 ML IV PRN (17:05)
[2024-09-13] MEDS ORDERED: magnesium sulf-water 2g/50mL 50 ML IV PRN (17:05)
[2024-09-13] MEDS ORDERED: ondansetron/PF 4mg/2ml inj IV PRN (17:05)
[2024-09-13] MEDS ORDERED: potassium Cl 40MEQ/1/2NS 520ml 520 ML IV PRN (17:05)
[2024-09-13] MEDS ORDERED: ringers solution, lacted 1,000 ML IV SCH (17:05)
[2024-09-13] MEDS ORDERED: potassium Cl 20 mEq SR tablet PO PRN ×2 (17:05)
[2024-09-13] MEDS ORDERED: HYDROcodone/acetaminophen 5mg/325mg tablet PO PRN (17:05)
[2024-09-13] MEDS ORDERED: HYDROcodone/acetaminophen 10/325mg tab PO PRN (17:05)
[2024-09-13] MEDS ORDERED: diphenhydrAMINE 50 mg/ml inj IV PRN (17:05)
[2024-09-13] MEDS ORDERED: mag hydrox/Alum hydrox/simeth 30ml oral suspension PO PRN (17:05)
--- NOTE | 2024-09-13 17:12 | HISTORY AND PHYSICAL ---
History & Physical Providers to CC ~ History of Present Illness Allergies: Coded Allergies: codeine (Unverified Allergy, Unknown, 09/13/24) RESP DEPRESSION Home Medications Home Medications Active Reported Prozac (Fluoxetine HCl) 40 Mg Capsule 1 Cap PO DAILY 90 Days Clopidogrel (Clopidogrel Bisulfate) 75 Mg Tablet 1 Tab PO DAILY 30 Days Do not stop medication unless instructed by prescriber. Multivitamin 1 Each Tablet 1 Tab PO DAILY 30 Days Morphine Sulfate Er (Morphine Sulfate) 15 Mg Tablet.er 1 Tab PO HS Dilaudid* (Hydromorphone HCl) 2 Mg Tablet 1 Tab PO TID PRN PRN 5 Days [Probiotic] 1 Tab PO BID Ferrous Sulfate 300 Mg (60 Mg Iron)/5 Ml Liquid 5 Ml PO DAILY 30 Days Omeprazole 20 Mg Capsule.dr 1 Cap PO QAM 30 Days Magnesium (Magnesium Oxide) 400 Mg Magnesium Capsule 400 Mg PO DAILY Vitamin D3 (Cholecalciferol (Vitamin D3)) 50 Mcg (2000 Unit) Capsule 1 Cap PO DAILY Lipitor* (Atorvastatin Calcium) 40 Mg Tablet 1 Tablet PO HS Elavil* (Amitriptyline HCl) 50 Mg Tablet 1 Tab PO HS Family History Family History: FH: cardiovascular disease FATHER, FH: kidney failure MOTHER, Exam Vitals: Vital Signs Date Time Temp Pulse Resp B/P (MAP) Pulse Ox O2 Delivery O2 Flow Rate FiO2 09/13/24 13:15 113 16 97 09/13/24 13:15 97.1 127/73 (91) 09/13/24 13:15 Room Air 09/13/24 12:48 0 Diagnostic Data Last Recorded Lab Results: 09/13/24 0820 09/13/24 0820 Diagnostic Data: Laboratory Tests Test 09/13/24 08:20 Prothrombin Time 10.3 SECONDS (9.0-12.0) INR International Normalized Ratio 1.0 INR Activated Partial Thromboplast Time 25 SECONDS (22-32) Coagulation Comments REYMUNDO ZAPATA FIRE HOSE CURER September 13, 2024 17:12
[2024-09-13 18:14] VITALS: BP 126/72; PULSE 75; RESP 15; O2SAT 97
[2024-09-13] MEDS ORDERED: K and/or MAG REPLACEMENT MC SCH (20:00)
[2024-09-13] MEDS ORDERED: docusate sod 100mg capsule PO SCH (20:00)
--- NOTE | 2024-09-14 05:54 | RADIOLOGY REPORT ---
EXAM: CT CTA ABDOMEN LOWER EXTR RUNOFF Reason for study/Clinical History: graft occlusion COMPARISON STUDY: CTA RUNOFF - LOWER EXT(ADULT) on DOS: 07/04/24, CT CTA ABDOMEN LOWER EXTR RUNOFF on DOS: 06/02/24 CTA LOWER EXTREMITY RUNOFF WITH CONTRAST DATED 09/13/2024 10:41 AM TECHNIQUE: 3D angiographic acquisition of lower extremities was obtained during the intravenous admi nistration of 125 mL Omnipaque 350 without immediate adverse effect. 3D Post processing, including ma ximum intensity projection, was performed on an independent workstation and images were reviewed on P ACS. Radiation Dose : CTDIvol 4.4mgy. DLP: 336.3 mGy cm. FINDINGS: Vascular: No aneurysm or dissection in the distal abdominal aorta. The celiac artery is patent. Atheroscleroti c calcifications in the superior mesenteric artery difficult stenosis. Inferior mesenteric artery is patent. Bilateral renal artery origins are patent. Right common iliac artery and right internal iliac artery are patent. There is a right external rosalva c artery stent which demonstrates multifocal high-grade stenosis. There is significant high-grade simone nosis of the right superficial femoral artery throughout the entire visualized course. The popliteal and tibioperoneal trunk are patent. There is high-grade stenosis in the right anterior tibial artery just after the trifurcation, with distal reconstitution. 3-vessel runoff to the foot. No evidence of aneurysm. Left common iliac artery and left internal iliac artery are patent. There is a left external iliac ar milton stent which appears patent. There is a stent in the [place] left superficial femoral artery which is occluded. There is a bypass graft from the left femoral artery to anterior tibial artery which is occluded. The anterior tibial artery is patent, supplied by the popliteal artery which has some simone nosis. The tibioperoneal trunk is patent. Posterior tibial and peroneal arteries are diminutive but p atent. Dorsalis pedis artery is patent. Soft tissue swelling throughout the visualized left lower ext remity. Other findings: CT of the abdomen pelvis (axial images): Lung bases: Bibasilar atelectasis. Cardiomegaly. Coronary artery calcifications. No pericardial effu flores. Liver: Low attenuating liver parenchyma. Intrahepatic and extrahepatic biliary ductal dilatation. Biliary system: Cholecystectomy. There is intrahepatic biliary ductal dilatation. The common bile d uct measures 1.4 cm in diameter. Adrenal glands: Unremarkable. Kidneys: Symmetric enhancement. No hydronephrosis. Right cortical renal cyst. No intrarenal calculi. Spleen: Unremarkable. Pancreas: Normal enhancement. No pancreatic mass. No peripancreatic inflammatory changes or dilatatio n. GI tract: Hiatal hernia with postsurgical changes along the lesser curvature. No bowel obstruction. Scattered stool throughout the colon. No findings to suggest acute appendicitis. Peritoneum: No pneumoperitoneum or free fluid. No lymphadenopathy. Reproductive: Unremarkable. Urinary bladder: Unremarkable. Musculoskeletal: No aggressive focal bony lesions, acute fractures or dislocation. Bilateral hip repl acements. Bones are demineralized. Posterior instrumented fusion in the lumbar spine. 1st metatarsoph alangeal joint patent hardware noted in the foot. IMPRESSION: 1. Occluded left femoral to anterior tibial bypass graft. Patent left anterior tibial and dorsalis pe dis arteries. Diminutive left posterior tibial and peroneal arteries without occlusion. 2. Patent 3-vessel runoff to the right foot. 3. Additional findings as described. END IMPRESSION:
== END 2024-09-13 18:30 | disposition home or self-care (01) ==
LOC: ER 07:45
DX: T82.898A Other specified complication of vascular prosthetic devices, implants and grafts, initial encounter (principal); J45.909 Unspecified asthma, uncomplicated; Z88.5 Allergy status to narcotic agent; Z90.710 Acquired absence of both cervix and uterus; Z98.84 Bariatric surgery status; Y83.2 Surgical operation with anastomosis, bypass or graft as the cause of abnormal reaction of the patient, or of later complication, without mention of misadventure at the time of the procedure; Y92.89 Other specified places as the place of occurrence of the external cause
CPT/HCPCS: 36415; 75635; 80048; 85025; 85610; 85730; 86885; 86900; 86901; 93005; 99285; A6446; A6449; J7120; Q9967; J1644

== ENCOUNTER 2024-09-29 07:00 | Day surgery (SDC) | payer MEDICARE ==
[~2024-09-29] VITALS: Ht 154.9 cm; Wt 48.5 kg
[~2024-09-29 07:00] MED LIST changes: -FLUO40CA10 PO; +ceFOXitin sod/dextrose 2g/50ml 50 ML IV ONE; +famotidine 20mg tablet PO ONE; +ringers solution, lacted 1,000 ML IV SCH
[2024-09-29 09:12] LABS: BASOPHILS # (AUTO) 0.3 X10'3 (0-0.2); BASOPHILS % (AUTO) 3.7 % (0-1); EOSINOPHILS # (AUTO) 0.4 X10'3 (0-0.9); EOSINOPHILS % (AUTO) 5.5 % (0-6); LYMPHOCYTES # (AUTO) 1.8 X10'3 (1.1-4.8); LYMPHOCYTES % (AUTO) 26.2 % (21-51); MEAN CORPUSCULAR HEMOGLOBIN 26.7 PG (27.0-31.0); MEAN CORPUSCULAR HGB CONC 32.5 g/dL (33.0-36.5); MEAN CORPUSCULAR VOLUME 82.4 FL (78-98); MEAN PLATELET VOLUME 6.8 FL (7.4-10.4); MONOCYTES # (AUTO) 0.9 X10'3 (0-0.9); MONOCYTES % (AUTO) 13.1 % (2-12); NEUTROPHILS # (AUTO) 3.6 X10'3 (1.8-7.7); NEUTROPHILS % (AUTO) 51.5 % (42-75); PRE OP HEMATOCRIT 31.1 % (35.0-45.0); PRE OP PLATELET COUNT 450 X10'3 (140-440); PRE OP WHITE BLOOD COUNT 6.9 10'3 (4.8-10.8); RED BLOOD COUNT 3.78 X10'6 (4.20-5.60); RED CELL DISTRIBUTION WIDTH 16.9 % (11.5-14.5)
[2024-09-29 09:29] LABS: PRE OP HEMOGLOBIN 10.1 g/dL (12.0-16.0)
[2024-09-29 09:32] LABS: PRE OP PARTIAL THROMB. TIME 21 SECONDS (22-32); PROTHROMBIN TIME 10.5 SECONDS (9.0-12.0)
[2024-09-29 09:37] LABS: ALBUMIN 3.1 G/DL (3.4-5.0); ALBUMIN/GLOBULIN RATIO 0.7 (1.1-1.5); ALKALINE PHOSPHATASE 110 IU/L (46-116); BLOOD UREA NITROGEN 19 MG/DL (7-18); BUN/CREATININE RATIO 15.2 (10.0-20.0); CHLORIDE 103 MMOL/L (99-107); CREATININE 1.25 MG/DL (0.40-0.90); PRE OP ALT 19 U/L (30-65); PRE OP ANION GAP 8 (8-16); PRE OP AST 30 U/L (10-37); PRE OP BILIRUB, TOTAL 0.3 MG/DL (0.0-1.0); PRE OP GLUCOSE 88 MG/DL (70-104); PRE OP SODIUM 145 MMOL/L (135-145); TOTAL PROTEIN 7.8 G/DL (6.4-8.2); eCRCL 29 ML/MIN; eGFR 42 ML/MIN
[2024-09-29 09:49] LABS: CALCIUM 12.7 MG/DL (8.5-10.1); PRE OP POTASSIUM 2.7 MMOL/L (3.4-5.1)
--- NOTE | 2024-09-29 14:50 | VASCULAR REPORT ---
EXAM: [facility] KEREN ANKLE/BRACHIAL INDEX CLINICAL HISTORY: Pain Peripheral vascular disease COMPARISON: [facility] KEREN on DOS: 09/12/24 TECHNIQUE: Bilateral systolic ankle and brachial pressures are obtained, with ankle pulse volume waveforms and i ndices. FINDINGS: Pressures: Right Left Brachial 130 mmHg 110 mmHg PT 70 mmHg 8 mmHg DP 92 mmHg 60 mmHg KEREN: Right Left 0.71 0.46 Pulse volume waveforms: Monophasic IMPRESSION: Moderate peripheral arterial disease in the right leg and moderate to severe peripheral arterial dise ase in the left leg per ankle-brachial index. 1.0-1.4: normal 0.91-0.99 borderline 0.9: abnormal (i.e. PAD) 0.4-0.9: [id number] PAD <0.4: suggestive of severe PAD
== END 2024-09-29 23:59 | disposition home or self-care (01) ==
LOC: PAS 07:00 → PAS IN 07:49 → UNDOADMIN 07:49 → EDSTATUS 11:45 → PAS 23:59
PROVIDERS: ATTEND Surgery
DX: I70.203 Unspecified atherosclerosis of native arteries of extremities, bilateral legs (principal); Z53.8 Procedure and treatment not carried out for other reasons; J44.9 Chronic obstructive pulmonary disease, unspecified; K21.9 Gastro-esophageal reflux disease without esophagitis; I25.10 Atherosclerotic heart disease of native coronary artery without angina pectoris; E78.5 Hyperlipidemia, unspecified; Z88.6 Allergy status to analgesic agent; F32.A Depression, unspecified; M19.90 Unspecified osteoarthritis, unspecified site; G62.9 Polyneuropathy, unspecified; Z98.890 Other specified postprocedural states; Z90.49 Acquired absence of other specified parts of digestive tract; Z90.710 Acquired absence of both cervix and uterus; Z79.01 Long term (current) use of anticoagulants; Z79.899 Other long term (current) drug therapy
CPT/HCPCS: 36415; 80053; 85025; 85610; 85730; 86885; 86900; 86901; 93922; A6402; A6449; J0694; J7120

== ENCOUNTER 2024-10-06 05:50 | Inpatient (IN) | payer MEDICARE ==
[2024-10-06] VITALS (21 sets, daily range): BP systolic 101–162; BP diastolic 51–78; PULSE 56–117; RESP 7–24; TEMP 97.1–98; O2SAT 92–100
[~2024-10-06] VITALS: Ht 154.9 cm; Wt 51.0 kg
[2024-10-06] MEDS: ceFAZolin 2gm/dext,iso 50mL 50 ML IV ONE (05:30)
[~2024-10-06 05:50] MED LIST changes: -ceFOXitin sod/dextrose 2g/50ml 50 ML IV ONE; -famotidine 20mg tablet PO ONE; -ringers solution, lacted 1,000 ML IV SCH
[2024-10-06] MEDS ORDERED: iohexol 300 MG/1 ML 50ml polymer ONE (06:56)
[2024-10-06] MEDS ORDERED: heparin 10,000 units/1 ML INJ ONE (06:56)
[2024-10-06] MEDS: famotidine 20mg tablet PO ONE (06:58)
[2024-10-06] MEDS: ringers solution, lacted 1,000 ML IV SCH (07:07)
[2024-10-06 07:13] LABS: BILIRUBIN,URINE NEGATIVE (Neg); CLARITY,URINE SLIGHTLY CLOUDY (Clear); COLOR,URINE YELLOW (Yellow); GLUCOSE, URINE NEGATIVE (Neg); KETONES,URINE NEGATIVE (Neg); LEUKOCYTE ESTERASE ,URINE LARGE (Neg); NITRITES, URINE NEGATIVE (Neg); OCCULT BLOOD,URINE NEGATIVE (Neg); PROTEIN,URINE NEGATIVE (Neg); UROBILINOGEN,URINE 0.2 E.U/dL (0.2-1.0)
[2024-10-06 07:22] LABS: SQUAMOUS EPITHELIAL CELL,UR MANY /LPF (FEW); TRANSITIONAL EPI CELLS,URINE MODERATE /HPF
[2024-10-06 07:23] LABS: WBC CLUMPS,URINE MODERATE /HPF (NEGATIVE)
[2024-10-06 07:24] LABS: BACTERIA,URINE 1+ /HPF (Neg); WBC,URINE 50-100 /HPF (0-4)
[2024-10-06 07:26] LABS: UA COLLECTION TYPE CLN CATCH MIDSTREAM
[2024-10-06 07:27] LABS: ALBUMIN 3.2 G/DL (3.4-5.0); ALBUMIN/GLOBULIN RATIO 0.6 (1.1-1.5); ALKALINE PHOSPHATASE 105 IU/L (46-116); BLOOD UREA NITROGEN 24 MG/DL (7-18); BUN/CREATININE RATIO 15.9 (10.0-20.0); CALCIUM 9.8 MG/DL (8.5-10.1); CHLORIDE 97 MMOL/L (99-107); CREATININE 1.51 MG/DL (0.40-0.90); PRE OP ALT 18 U/L (30-65); PRE OP ANION GAP 8 (8-16); PRE OP AST 29 U/L (10-37); PRE OP BILIRUB, TOTAL 0.4 MG/DL (0.0-1.0); PRE OP GLUCOSE 107 MG/DL (70-104); PRE OP SODIUM 137 MMOL/L (135-145); TOTAL CARBON DIOXIDE 31.9 MMOL/L (24-32); TOTAL PROTEIN 8.3 G/DL (6.4-8.2); eCRCL 24 ML/MIN; eGFR 34 ML/MIN
[2024-10-06] MEDS ORDERED: iohexol 300mg/ml 100ml inj. ONE (07:33)
[2024-10-06] MEDS ORDERED: heparin 1,000 UNITS/NS 500ml 0 ML ONE (07:34)
[2024-10-06] MEDS ORDERED: heparin 1,000 UNITS/NS 500ml 500 ML ONE (07:34)
[2024-10-06 07:35] LABS: PRE OP POTASSIUM 3.2 MMOL/L (3.4-5.1)
[2024-10-06] MEDS ORDERED: sevoflurane 250ml liquid IH ONE (08:05)
[2024-10-06] MEDS ORDERED: fentaNYL /PF 50mcg/ml 5ml ampule ONE (08:08)
[2024-10-06] MEDS ORDERED: midazolam 1 mg/ML 2ml injection ONE (08:08)
[2024-10-06] MEDS ORDERED: propofol inj 20 ML IV ONE (08:36)
--- NOTE | 2024-10-06 08:47 | PROGRESS NOTE ---
Progress Note - Angio Providers to CC ~ Angio Progress Note: Here for angiogram and surgical intervention as well. IR to assist in left pelvis angiography and possible angioplasty, stent, thrombolysis, thrombectomy procedures. D/W patient and with anesthesiology also present. She has a history of continued alcohol consumption and apparently quit smoking several years ago. Elevated Creatinine. Informed consent disclosed. MELANIE POP MD Oct 06, 2024 08:47
[2024-10-06] MEDS ORDERED: albumin (Human) 5% 250ml 250 ML IV ONE ×2 (09:22→09:41)
[2024-10-06] MEDS ORDERED: NORepinephrine 8mg/ 250ml NS 250 ML IV ONE (09:22)
[2024-10-06] MEDS ORDERED: heparin 1,000unit/ml 10ml vial 10 ML ONE (09:41)
[2024-10-06] MEDS ORDERED: rocuronium 10mg/ml inj IV ONE (09:44)
[2024-10-06] MEDS ORDERED: dexamethasone sod phosphate 4mg/ml inj. ONE (09:45)
[2024-10-06] MEDS ORDERED: ringers solution, lacted 1,000 ML IV SCH (09:50)
[2024-10-06] MEDS ORDERED: enalaprilat 1.25mg/ml 2ml vial IV PRN (09:50)
[2024-10-06] MEDS ORDERED: morphine 4 MG/ML inj SYRINge IV PRN (09:50)
[2024-10-06] MEDS ORDERED: labetalol 20mg/4ml (5mg/ml) syringe IV PRN (09:50)
[2024-10-06] MEDS ORDERED: ondansetron/PF 4mg/2ml inj IV PRN ×2 (09:50→10:10)
[2024-10-06] MEDS ORDERED: meperidine/PF 25mg/ml syringe IV PRN ×3 (09:50)
[2024-10-06] MEDS ORDERED: morphine 2 MG/ML inj. syringe IV PRN (09:50)
[2024-10-06] MEDS ORDERED: proCHLORperazine 10 MG/2 ml inj IV PRN (09:50)
--- NOTE | 2024-10-06 10:00 | OPERATIVE REPORT ---
Operative Report Providers to CC ~ Date of Procedure: Oct 06, 2024 Pre-Operative Diagnosis: LLE graft occlusion Post-Operative Diagnosis SAME as PRE-Op Procedure Performed LLE graft thrombectomy Surgeon: marivel Office Machine Servicer lucia Anesthesiologist: Jose Carlos Thacker Type of Anesthesia: General Findings: occuded graft Estimated Blood Loss: 100 ml Specimen Removed: culture DURAN PADILLA MD Oct 06, 2024 10:00
[2024-10-06] MEDS ORDERED: naloxone 0.4 mg/ml inj IV PRN (10:10)
[2024-10-06] MEDS: potassium CL 20mEq in D5-1/2NS 1,000 ML IV SCH (10:10)
[2024-10-06] MEDS ORDERED: HYDROcodone/acetaminophen 5mg/325mg tablet PO PRN (10:10)
[2024-10-06] MEDS: potassium Cl 20 mEq SR tablet PO PRN (12:04)
[2024-10-06] MEDS: apixaban 5mg tablet PO SCH (12:04)
--- NOTE | 2024-10-06 16:06 | RADIOLOGY REPORT ---
Intraoperative angiography left pelvis and left lower extremity runoff HISTORY: Patient has suspected left external iliac artery stenosis. Intraoperative thrombectomy performed by Dr. Allison of the left femoral-anterior tibial graft. Requested angiography for possible intervention left external iliac artery or left femoral-anterior tibial artery anastomosis if stenotic. A femoral cutdown was performed by Dr. Allison. Via a 7 Ugandan sheath access was gained with a 5 [place] angled catheter and 035 Glidewire into the distal aorta. Next the assembly was attracted into the left common iliac artery and angiography was performed. This demonstrated a widely patent left external iliac artery and left common iliac artery as well as a patent left internal iliac artery. There is evidence of mild smooth stenosis at the extreme distal left external iliac artery although this was deemed less than 40% of area and likely nonflow significant hence intervention was not indicated. Next Dr. Allison reversed the direction of the 7 Ugandan sheath at the superficial femoral artery directed distally. Angiography was performed through the sheath demonstrating a widely patent distal anastomosis at the proximal anterior tibial artery with retrograde filling of the tibial peroneal artery and the small caliber but patent posterior tibial artery and peroneal artery. The dominant vessel to the foot is the anterior tibial artery which supplies multiple collaterals and the majority of the plantar arch as well as reconstituted sections of the dorsalis pedis. The exuberant collaterals from the ankle distally were deemed appropriate and not requiring further endovascular intervention. Total fluoroscopy time was 25.3 seconds with dose of 6.31 mGy. IMPRESSION: Intraoperative angiography via access at left superficial femoral artery by Dr. Allison demonstrates no evidence of flow significant stenosis. There is smooth narrowing at the distal left external iliac artery not requiring intervention. There is a widely patent distal anastomosis of the femoral-anterior tibial graft with dominant outflow in the form of the anterior tibial artery to the foot. Rich collaterals are seen at the distal ankle as well.
[2024-10-06] MEDS: ceFAZolin inj. 1,000 MG in dextrose 5%-water 50ml 50 ML IV SCH (16:35)
[2024-10-06] MEDS ORDERED: HYDROmorphone 2mg tablet PO PRN (20:35)
[2024-10-06] MEDS: amitriptyline 50mg tablet PO SCH (21:19)
[2024-10-06] MEDS: morphine ER 15mg tablet PO SCH (21:19)
[2024-10-06] MEDS: atorvastatin 20mg tablet PO SCH (21:19)
--- NOTE | 2024-10-07 00:14 | OPERATIVE REPORT ---
DATE OF SURGERY: 10/06/2024 DICTATING PHYSICIAN: Driss Allison MD PREOPERATIVE DIAGNOSIS: Occluded graft, left lower extremity. POSTOPERATIVE DIAGNOSIS: Occluded graft, left lower extremity. PROCEDURE PERFORMED: Left lower extremity graft thrombectomy. SURGEON: Driss Allison MD SURGICAL SCRUB TECH: Jun. ANESTHESIA: General/Dr. Thacker DRAINS: None. INDICATIONS FOR OPERATION: A 74-year-old female with history of peripheral vascular disease, developed an occluded graft after stopping Eliquis, taken to surgery for graft thrombectomy, possible stent placement. INTRAOPERATIVE FINDINGS: The patient had minimal disease above the escobedo of the graft. Distal anastomosis was patent without evidence of stenosis at the time of angiography. DESCRIPTION OF PROCEDURE: The patient was placed supine on the operating table. After induction of general anesthesia and placement of endotracheal tube, the lower extremities were prepped and draped. A longitudinal incision was made over the graft of left lower extremity. The patient was heparinized 5,000 units of heparin. A small incision was made in the graft. A #3 catheter was passed distally. Some clot removed. Back bleeding noted. Graft was then flushed with heparinized saline. A #3 Angelina catheter was then passed proximally with good return of inflow minimal clot. Angiography was then performed by Dr. Kern. Upon completion of the angiography, graft incision was closed with running sutures of 5-0 Prolene. Skin was closed in layers. Skin was closed with clips. Dressings applied. The patient was transferred in stable condition. Driss Allison MD TID: [id number] RECEIPT: [id number] CONTRERAS/STACEY Allison M.D. MTDD
[2024-10-07 02:00] VITALS: BP 114/55; PULSE 93; RESP 16; TEMP 97.3; O2SAT 96
[2024-10-07 06:00] VITALS: BP 115/40; PULSE 87; RESP 16; TEMP 98; O2SAT 93
[2024-10-07 07:26] LABS: BASOPHILS % (AUTO) 0.5 % (0-1); EOSINOPHILS % (AUTO) 0.3 % (0-6); HEMATOCRIT 23.7 % (35.0-45.0); HEMOGLOBIN 7.8 g/dl (12.0-16.0); LYMPHOCYTES # (AUTO) 1.8 X10'3 (1.1-4.8); LYMPHOCYTES % (AUTO) 23.3 % (21-51); MEAN CORPUSCULAR HEMOGLOBIN 27.1 PG (27.0-31.0); MEAN CORPUSCULAR VOLUME 82.1 FL (78-98); MEAN PLATELET VOLUME 7.6 FL (7.4-10.4); MONOCYTES # (AUTO) 0.7 X10'3 (0-0.9); MONOCYTES % (AUTO) 9.7 % (2-12); NEUTROPHILS % (AUTO) 66.2 % (42-75); PLATELET COUNT 358 X10'3 (140-440); RED BLOOD COUNT 2.88 X10'6 (4.20-5.60); RED CELL DISTRIBUTION WIDTH 17.5 % (11.5-14.5); WHITE BLOOD COUNT 7.5 X10'3 (4.5-11.0)
[2024-10-07] MEDS: cholecalciferol (vitamin D3) 1,000 unit (25mcg) tablet PO SCH (07:26)
[2024-10-07] MEDS: clopidogrel 75mg tablet PO SCH (07:26)
[2024-10-07] MEDS: multivitamins, therapeutics tablet PO SCH (07:26)
[2024-10-07] MEDS: pantoprazole 40mg Tablet.DR PO SCH (07:26)
[2024-10-07] MEDS: magnesium oxide 400mg tablet PO SCH (07:26)
[2024-10-07] MEDS: lactobacillus rhamnosus 10,000 MMU CELLS/CAPSULE PO SCH (07:26)
[2024-10-07] MEDS: ferrous sulfate 300mg/5ml UD oral liquid PO SCH (07:27)
[2024-10-07 07:35] LABS: ALANINE AMINOTRANSFERASE 10 U/L (12-78); ALBUMIN 2.8 G/DL (3.4-5.0); ALBUMIN/GLOBULIN RATIO 0.7 (1.1-1.5); ALKALINE PHOSPHATASE 77 IU/L (46-116); ANION GAP 6 (8-16); ASPARTATE AMINO TRANSFERASE 23 U/L (10-37); BILIRUBIN,TOTAL 0.2 MG/DL (0.1-1.0); BLOOD UREA NITROGEN 24 MG/DL (7-18); CALCIUM 8.2 MG/DL (8.5-10.1); CHLORIDE 102 MMOL/L (99-107); CREATININE 1.33 MG/DL (0.40-0.90); GLUCOSE 101 MG/DL (70-104); POTASSIUM 4.1 MMOL/L (3.5-5.1); SODIUM 137 MMOL/L (135-145); TOTAL CARBON DIOXIDE 29.1 MMOL/L (24-32); TOTAL PROTEIN 6.7 G/DL (6.4-8.2); eCRCL 27 ML/MIN; eGFR 39 ML/MIN
[2024-10-07 08:00] VITALS: RESP 16; O2SAT 93
[2024-10-07 11:00] VITALS: BP 136/48; PULSE 87; RESP 16; TEMP 97.9; O2SAT 95
== END 2024-10-07 14:00 | disposition home or self-care (01) | DRG 254 ==
LOC: PAS IN 05:50 → PCU 3S 11:44
PROVIDERS: ADMIT Surgery; ATTEND Surgery
PROC: B41C1ZZ Fluoroscopy of Pelvic Arteries using Low Osmolar Contrast (ICD-10-PCS; 2024-10-06)
PROC: 04CY0ZZ Extirpation of Matter from Lower Artery, Open Approach (ICD-10-PCS; principal; 2024-10-06 08:05)
PROC: B41G1ZZ Fluoroscopy of Left Lower Extremity Arteries using Low Osmolar Contrast (ICD-10-PCS; 2024-10-06 08:05)
DX: T82.898A Other specified complication of vascular prosthetic devices, implants and grafts, initial encounter (principal); Y83.8 Other surgical procedures as the cause of abnormal reaction of the patient, or of later complication, without mention of misadventure at the time of the procedure; I73.9 Peripheral vascular disease, unspecified; Y92.89 Other specified places as the place of occurrence of the external cause; Z88.5 Allergy status to narcotic agent
CPT/HCPCS: 36245; 36415; 75710; 80053; 81001; 82948; 85025; 86885; 86900; 86901; 86920; 87070; 87075; 87081; A4618; A6258; A6449; A6455; A7000; C1757; C1758; C1769; C1894; G0378; J0690; J1100; J1644; J2250; J2704; J3010; J3490; J7030; J7040; J7060; J7120; P9045; Q9967

== ENCOUNTER 2024-11-02 08:39 | Inpatient (IN) | payer MEDICARE ==
[2024-11-02] VITALS (32 sets, daily range): BP systolic 116–160; BP diastolic 51–82; PULSE 84–113; RESP 9–28; TEMP 97.7–97.8; O2SAT 71–100
[~2024-11-02] VITALS: Ht 154.9 cm; Wt 55.6 kg
[~2024-11-02 08:39] MED LIST changes: +APIX5TAB3 PO; +ATOR20TA66 PO; -ATOR40TA PO; -CLOP75TA34 PO; -FER300L PO; -PROBIOTIC PO; +[UNRECOGNIZED DRUG - OTHER] PO
[2024-11-02] MEDS ORDERED: iohexol 300 MG/1 ML 50ml polymer ONE (10:15)
[2024-11-02 10:21] LABS: MEAN PLATELET VOLUME 6.6 FL (7.4-10.4); PRE OP HEMATOCRIT 24.8 % (35.0-45.0); PRE OP PLATELET COUNT 487 X10'3 (140-440); PRE OP WHITE BLOOD COUNT 6.7 10'3 (4.8-10.8); RED CELL DISTRIBUTION WIDTH 17.4 % (11.5-14.5)
[2024-11-02 10:23] LABS: PRE OP HEMOGLOBIN 7.9 g/dL (12.0-16.0)
[2024-11-02] MEDS ORDERED: ceFAZolin/D5W- 1GM premix 50 ML IV SCH (10:25)
[2024-11-02] MEDS: ceFAZolin 2gm/dext,iso 50mL 50 ML IV ONE (10:31)
[2024-11-02 10:50] LABS: PRE OP INR 1.2 INR; PRE OP PARTIAL THROMB. TIME 31.0 SECONDS (22-32); PRE OP PROTIME 12.0 SECONDS (9.0-12.0)
[2024-11-02 10:51] LABS: CREATININE 0.70 MG/DL (0.40-0.90); PRE OP ANION GAP 5 (8-16); PRE OP BILIRUB, TOTAL 0.3 MG/DL (0.0-1.0); PRE OP GLUCOSE 112 MG/DL (70-104); PRE OP SODIUM 136 MMOL/L (135-145); TOTAL CARBON DIOXIDE 34.2 MMOL/L (24-32); eCRCL 52 ML/MIN; eGFR 81 ML/MIN
[2024-11-02 10:52] LABS: PRE OP ALT 15 U/L (30-65); PRE OP AST 28 U/L (10-37)
[2024-11-02 11:10] LABS: PRE OP POTASSIUM 3.1 MMOL/L (3.4-5.1)
[2024-11-02] MEDS: ringers solution, lacted 1,000 ML IV SCH ×2 (12:08→14:45)
[2024-11-02] MEDS ORDERED: fentaNYL/PF 50MCG/1 ML 2ML syringe ONE (13:37)
[2024-11-02] MEDS ORDERED: midazolam 1 mg/ML 2ml injection ONE (13:37)
[2024-11-02] MEDS ORDERED: dexamethasone sod phosphate 4mg/ml inj. ONE (13:38)
[2024-11-02] MEDS ORDERED: rocuronium 10mg/ml inj IV ONE (13:38)
[2024-11-02] MEDS ORDERED: propofol inj 20 ML IV ONE (13:38)
[2024-11-02] MEDS ORDERED: LIDOcaine 2% (20mg/ml) 5ml vial ONE (13:38)
[2024-11-02] MEDS ORDERED: ondansetron/PF 4mg/2ml inj ONE (13:38)
[2024-11-02] MEDS ORDERED: heparin 1,000unit/ml 10ml vial 10 ML ONE (13:38)
[2024-11-02 13:42] LABS: ISTAT ANION GAP 16.0 (8-12); ISTAT BUN 17.0 mg/dL (7-18); ISTAT CL 94.0 mmol/L (99-107); ISTAT CREATININE 0.9 mg/dL (0.6-1.1); ISTAT GLUCOSE 106.0 mg/dL (70-104); ISTAT HGB 8.5 g/dl (12.0-16.0); ISTAT Hct 25.0 %PCV (35-45); ISTAT IONIZED CALCIUM 0.87 mmol/L (1.03-1.32); ISTAT NA 140.0 mmol/L (135-145); ISTAT TOTAL CO2 30.0 mmol/L (24-32); ISTAT eGFR 61.0 ML/MIN; POC BUN/CREATININE RATIO 18.9 (6.6-38.0)
[2024-11-02] MEDS ORDERED: potassium Cl 20 mEq SR tablet PO PRN ×2 (13:50)
[2024-11-02] MEDS: K, MAG and/or Phos replacement - Verify level? MC SCH (13:50)
[2024-11-02 14:04] LABS: ISTAT K 2.9 mmol/L (3.5-5.1)
[2024-11-02 14:07] LABS: ISTAT K CONFIRMATION 3.0 mmol/L
[2024-11-02] MEDS ORDERED: albumin (Human) 5% 250ml 250 ML IV ONE ×2 (14:14)
[2024-11-02] MEDS ORDERED: acetaminophen 1,000mg/100ml IV 100 ML IV ONE (14:17)
[2024-11-02] MEDS ORDERED: hydrALAZINE 20mg/ml inj. IV PRN (14:45)
[2024-11-02] MEDS ORDERED: labetalol 20mg/4ml (5mg/ml) syringe IV PRN (14:45)
[2024-11-02] MEDS ORDERED: ondansetron/PF 4mg/2ml inj IV PRN ×2 (14:45→16:00)
[2024-11-02] MEDS ORDERED: fentaNYL/PF 50MCG/1 ML 2ML syringe IV PRN (14:45)
[2024-11-02] MEDS ORDERED: glycopyrrolate 0.2mg/ml inj ONE (15:28)
[2024-11-02] MEDS: morphine 4 MG/ML inj SYRINge IV PRN (15:45)
[2024-11-02] MEDS: fentaNYL/PF 50MCG/1 ML 2ML syringe IV PRN (15:49)
--- NOTE | 2024-11-02 15:53 | OPERATIVE REPORT ---
Operative Report Providers to CC ~ Date of Procedure: Nov 02, 2024 Pre-Operative Diagnosis: LLE graft thrombosis Post-Operative Diagnosis SAME as PRE-Op Procedure Performed LLE graft thrombectomy Surgeon: marivel montaño Anesthesiologist: Austin Medina Type of Anesthesia: General Findings: thrombosed graft Estimated Blood Loss: 250 ml Specimen Removed: graft clot DURAN PADILLA MD Nov 02, 2024 15:53
[2024-11-02] MEDS ORDERED: HYDROcodone/acetaminophen 5mg/325mg tablet PO PRN (16:00)
[2024-11-02 16:10] LABS: ISTAT ANION GAP 17.0 (8-12); ISTAT BUN 15.0 mg/dL (7-18); ISTAT CL 97.0 mmol/L (99-107); ISTAT CREATININE 0.7 mg/dL (0.6-1.1); ISTAT GLUCOSE 117.0 mg/dL (70-104); ISTAT HGB 7.1 g/dl (12.0-16.0); ISTAT Hct 21.0 %PCV (35-45); ISTAT IONIZED CALCIUM 0.82 mmol/L (1.03-1.32); ISTAT K 3.0 mmol/L (3.5-5.1); ISTAT NA 140.0 mmol/L (135-145); ISTAT TOTAL CO2 26.0 mmol/L (24-32); ISTAT eGFR 81.0 ML/MIN; POC BUN/CREATININE RATIO 21.4 (6.6-38.0)
[2024-11-02] MEDS ORDERED: magnesium sulf-water 4G/100mL 100 ML IV PRN (16:25)
[2024-11-02] MEDS ORDERED: magnesium sulf-water 2g/50mL 50 ML IV PRN (16:25)
[2024-11-02] MEDS: potassium Cl 40MEQ/1/2NS 520ml 520 ML IV PRN (16:59)
[2024-11-02] MEDS: ceFAZolin/D5W- 1GM premix 50 ML IV SCH (17:10)
[2024-11-02 17:12] LABS: ISTAT K CONFIRMATION 3.0 mmol/L
[2024-11-02] MEDS: potassium CL 20mEq in D5-1/2NS 1,000 ML IV SCH (21:20)
[2024-11-03] VITALS (16 sets, daily range): BP systolic 110–160; BP diastolic 50–108; PULSE 95–106; RESP 14–24; TEMP 95.7–99.1; O2SAT 90–98
[2024-11-03] MEDS: HYDROmorphone inj. 0.5 MG/0.5 ML DISP.SYRIN IV PRN (02:37)
[2024-11-03 06:10] LABS: MEAN PLATELET VOLUME 6.8 FL (7.4-10.4); RED CELL DISTRIBUTION WIDTH 17.5 % (11.5-14.5)
[2024-11-03 06:23] LABS: CREATININE 0.85 MG/DL (0.40-0.90); TOTAL CARBON DIOXIDE 26.5 MMOL/L (24-32); eCRCL 42 ML/MIN; eGFR 65 ML/MIN
[2024-11-03] MEDS: K and/or MAG REPLACEMENT MC SCH (07:05)
[2024-11-03] MEDS: aspirin 81mg, enteric-coated 1 TAB TABLET.DR PO SCH (08:00)
--- NOTE | 2024-11-03 10:44 | OPERATIVE REPORT ---
DATE OF SURGERY: 11/02/2024 DICTATING PHYSICIAN: Driss Allison MD PREOPERATIVE DIAGNOSIS: Left lower extremity graft occlusion. POSTOPERATIVE DIAGNOSIS: Left lower extremity graft occlusion. PROCEDURES PERFORMED: * Lower extremity graft thrombectomy. * Intraoperative angio. SURGEON: Driss Allison MD AWS ARCHITECT: None. ANESTHESIA: General/Dr. Medina. DRAINS: None. INDICATIONS FOR OPERATION: A 74-year-old female with history of previous left femoral and tibial bypass. She was noted to have an occluded graft, taken to surgery for graft thrombectomy. INTRAOPERATIVE FINDINGS: Large amount of clot in the graft. The patient had good flow in the graft post thrombectomy. Intraoperative angiogram revealed a patent distal anastomosis. DESCRIPTION OF PROCEDURE: The patient was placed supine on the operating table. After induction of general anesthesia and placement of endotracheal tube, legs were prepped and draped. A longitudinal incision was made over the top of the previously placed left fem and tibial bypass. Grafts were then isolated. The patient was maintained on Eliquis throughout her hospitalization. A transverse incision was subsequently made. A #3 Angelina catheter was passed distally, large amount of clot removed and good active bleeding was noted. A was then passed proximally with samaritan of good brisk flow. Distal graft was and flushed with heparinized saline. Graft incision was then closed with sutures of 5-0 Prolene. Intraoperative angiogram was performed, which revealed a patent distal anastomosis. Wounds were subsequently closed in layers, skin closed with subcuticular stitch, dressings applied. The patient was transferred to recovery room in stable condition. Driss Allison MD TID: [id number] RECEIPT: [id number] CONTRERAS/STACEY/BRADY
--- NOTE | 2024-11-03 17:01 | PROGRESS NOTE ---
Progress Note ID Providers to CC ~ Progress Note Progress Note: doing well/dc DURAN PADILLA MD Nov 03, 2024 17:01
[2024-11-03] MEDS ORDERED: morphine ER 15mg tablet PO SCH (21:00)
[2024-11-04] MEDS ORDERED: pantoprazole 40mg Tablet.DR PO SCH (07:30)
[2024-11-04] MEDS ORDERED: cholecalciferol (vitamin D3) 1,000 unit (25mcg) tablet PO SCH (08:00)
[2024-11-04] MEDS ORDERED: multivitamins, therapeutics tablet PO SCH (08:00)
[2024-11-04] MEDS ORDERED: [UNRECOGNIZED DRUG - OTHER] PO SCH (08:00)
--- NOTE | 2024-11-06 11:19 | PATHOLOGY REPORT ---
[facility] [address] [place] [address] SURGICAL PATHOLOGY REPORT CaseNumber: [id number] Surgeon:Driss Allison M.D. CLINICAL INFORMATION CLINICAL INFORMATION: Thrombosis of leg and foot. DIAGNOSIS DIAGNOSIS: THROMBUS, LEFT LEG; RESECTION - BLOOD AND FIBRIN, CONSISTENT WITH THROMBUS. MICROSCOPIC DESCRIPTION MICROSCOPIC DESCRIPTION: Performed. GROSS DESCRIPTION GROSS DESCRIPTION: Received in a container of formalin labeled with the patient's name, number, and " graft clot left leg" is a 2 cm aggregate of irregularly shaped pieces of clotted blood. A representa tive section is submitted as A1. The time at which the specimen was removed was 1500. The time at ich the specimen was placed in formalin was 1524. Electronically signed by: Vinh Urbano, 11/06/2024 10:45:00 AM
--- NOTE | 2024-11-08 19:05 | DISCHARGE SUMMARY ---
DATE OF DISCHARGE: 11/03/2024 DICTATING PHYSICIAN: Driss Allison MD ADMISSION DIAGNOSES: * Occluded graft. * Peripheral vascular disease. * History of GERD. DISCHARGE DIAGNOSES: * Occluded graft. * Peripheral vascular disease. * History of GERD. PROCEDURE: Left lower extremity graft thrombectomy. HISTORY AND PHYSICAL: See hospital chart. BRIEF HOSPITAL SUMMARY: The patient is a 74-year-old female with previous left fem distal bypass graft occlusion. She was admitted, underwent graft thrombectomy, had a good result and was discharged to home on ____. FOLLOWUP: Follow up with Dr. Allison in 1-2 weeks. DISCHARGE MEDICATIONS: See chart. DISPOSITION: Discharged to home. Driss Allison MD TID: [id number] RECEIPT: [id number] CONTRERAS/BELÉN/BRADY
== END 2024-11-03 16:40 | disposition home or self-care (01) | DRG 253 ==
LOC: PAS IN 08:39 → PCU 3S 19:40
PROVIDERS: ADMIT Surgery; ATTEND Surgery
PROC: 04CS0ZZ Extirpation of Matter from Left Posterior Tibial Artery, Open Approach (ICD-10-PCS; 2024-11-02)
PROC: 04CL0ZZ Extirpation of Matter from Left Femoral Artery, Open Approach (ICD-10-PCS; principal; 2024-11-02 13:52)
PROC: 30233N1 Transfusion of Nonautologous Red Blood Cells into Peripheral Vein, Percutaneous Approach (ICD-10-PCS; 2024-11-03)
DX: T82.868A Thrombosis due to vascular prosthetic devices, implants and grafts, initial encounter (principal); R71.0 Precipitous drop in hematocrit; Y83.8 Other surgical procedures as the cause of abnormal reaction of the patient, or of later complication, without mention of misadventure at the time of the procedure; Y92.89 Other specified places as the place of occurrence of the external cause; Z88.5 Allergy status to narcotic agent
CPT/HCPCS: 36415; 36430; 73590; 77002; 80047; 80048; 80053; 82948; 85025; 85610; 85730; 86885; 86900; 86901; 86920; 87081; 88304; A4215; A4615; A4618; A6213; A6258; A6402; A6449; A7000; C1757; C1758; G0378; J0131; J0690; J1100; J1171; J1644; J2003; J2250; J2270; J2405; J2704; J2710; J3010; J3480; J3490; J7040; J7120; P9016; P9045; Q9967

== ENCOUNTER 2025-03-20 12:30 | Outpatient (CLI) | payer MEDICARE ==
[~2025-03-20 12:30] MED LIST changes: -MORP-92 PO; +MORP15TA5 PO
--- NOTE | 2025-03-20 14:47 | VASCULAR REPORT ---
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 : DURAN ALLISON, Preliminary Report The above named patient was referred for a NON-INVASIVE LOWER EXTREMITY ARTERIAL EVALUATION. The evaluation includes grayscale imaging, color flow Doppler and spectral analysis of the lower extermity arteries. 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 Art. Fem Art Fem Art 0.0 Occluded Occluded Prox. Prox. Fem Art Fem Art 0.0 Occluded Occluded Mid. Mid. Fem Art Fem Art 0.0 Occluded Occluded Dist. Dist. 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 PARKING METER MECHANIC Dist. 23.0 Monophasic Per Art Dist. Per Art Dist. 32.9 Monophasic ROSS Prox. ROSS Prox. 54.0 Monophasic ROSS Dist. ROSS Dist. 45.0 Monophasic PATIENT : AALIYAH ARANDA MR # : [id number] DATE OF STUDY : 03/20/2025 2 of 2 BYPASS GRAFT ANALYSIS RIGHT cm/se Waveform Severity LEFT cm/se Waveform Severity C Prox. Prox. 277.0 Multiphasic Severe >80% Anastomosis Anastomosis Proximal Proximal 0 Occluded Occluded Mid Mid 0.0 Occluded Occluded Distal Distal 0.0 Occluded Occluded Distal Distal 0.0 Occluded Occluded Anastomosis Anastomosis Critical Notification Physician Notified Date: 03/20/2025 Time: 14:34 Physician Name:MD Allison Critical Value Impression: The left Fem-tib bypass graft appears occluded. The proximal anastomosis appears to be the only patent area with turbulent velocities of 277 cm/sec. Elevated velocities noted within the left common femoral artery. Monophasic flow noted within the left pedal arteries. No ankle-brachial index due to open wounds.
== END 2025-03-20 23:59 | disposition home or self-care (01) ==
LOC: VAS 12:30
PROVIDERS: ATTEND Surgery
DX: I73.9 Peripheral vascular disease, unspecified (principal)
CPT/HCPCS: 93926